=== PATIENT | female | born 1985 | race Caucasian/White ===

== ENCOUNTER 2017-06-19 20:34 | Emergency (ER) | payer OTHER, SELFPAY ==
[2017-06-19 20:44] VITALS: BP 130/79; PULSE 85; RESP 18; TEMP 36.8; O2SAT 99
[2017-06-19 23:40] VITALS: BP 124/65; PULSE 78; RESP 22; O2SAT 99
[2017-06-20 00:12] VITALS: BP 116/55; PULSE 83; RESP 20; O2SAT 99
--- NOTE | 2017-06-20 00:30 | ED.ARRPALP ---
HPI - Arrhythmia/Palpitations General Chief Complaint: Arrhythmia/Palpitations Stated Complaint: HEART PALPITATIONS Time Seen by Provider: 06/20/17 00:17 Source: patient Mode of arrival: ambulatory Limitations: no limitations History of Present Illness HPI narrative: The patient has experienced brief palpitations for the last 2 nights. She is feeling a strange sensation in her chest that lasts only 1 or 2 sec at a time, but the events are happening several times nightly. There is no radiation of pain. She has no associated dyspnea. She has no underlying cardiac or respiratory illness. She is asymptomatic at this time. She does have Crohn's disease and has chronic abdominal pain. She started a ketogenic diet about 4 weeks ago, this is benefit her. However, with this diet she is having to force herself to drink as she does not feel thirsty. She is not taking supplements. She drinks about 1 cup of coffee daily. Alcohol use is less than 1 drink daily. She occasionally smokes, she does smoke marijuana for the Crohn's. She does this to stimulate appetite. There is no family history of early cardiac disease. She is having no fever, chills, cough or dysuria. She is on control. She vomited 2 times yesterday, but this is not abnormal for her due to the Crohn's. Related Data Home Medications Medication Instructions Recorded Confirmed cetirizine 10 mg PO QDAY #0 11/27/16 06/19/17 azathioprine 50 mg PO DAILY 06/19/17 06/19/17 budesonide 3 mg PO DAILY 06/19/17 06/19/17 ergocalciferol (vitamin D2) 50,000 unit PO QWEEK 06/19/17 06/19/17 polyethylene glycol 3350 17 g PO DAILY 06/19/17 06/19/17 ranitidine HCl 150 mg PO DAILY 06/19/17 06/19/17 ustekinumab [Stelara] See Label Instructions .ROUTE 06/19/17 06/19/17 .COMPLEX Previous Rx's Medication Instructions Recorded gabapentin [Neurontin] 300 mg PO SEE INSTRUCTIONS #60 cap 09/22/15 duloxetine [Cymbalta] 30 mg PO QDAY #30 cap 10/31/15 lamotrigine [Lamictal] 100 mg PO QDAY #30 tab 10/31/15 prazosin 1 mg PO SEE INSTRUCTIONS #60 cap 10/31/15 Allergies Allergy/AdvReac Type Severity Reaction Status Date / Time sumatriptan [SUMATRIPTAN] Allergy Severe MUSCLE Verified 06/20/17 01:25 RIGIDITY IN FACE olopatadine [From PATANOL] Allergy Intermediate RED AND Verified 06/20/17 01:25 SWOLLEN EYES Review of Systems Constitutional Denies chills, Denies fever(s), Denies lethargy and Denies weakness ENT Ears, Nose, Mouth, and Throat: Denies change in voice, Denies dysphagia, Denies vertigo, Denies dizziness, Denies neck pain and Denies sore throat Cardiovascular Reports as per HPI, Denies chest pain, Denies diaphoresis, Denies lightheadedness, Reports palpitations, Denies dyspnea and Denies dyspnea on exertion Respiratory Denies cough, Denies dyspnea, Denies dyspnea on exertion and Denies wheezing Gastrointestinal Gastrointestinal: Reports abdominal pain, Denies dysphagia, Denies diarrhea, Reports nausea and Reports vomiting Genitourinary Denies urinary frequency and Denies urinary urgency Musculoskeletal Denies neck pain Integumentary/Breasts Denies pruritus, Denies erythema, Denies rash and Denies wounds Neurologic Denies vertigo, Denies dizziness and Denies weakness Endocrine Reports palpitations Hematologic/Lymphatic Denies easy bleeding Allergic/Immunologic Denies wheezing PFSH Medical History Crohn disease (Acute) No significant past surgical history (Acute) Social History Smoking Status: Current some day smoker alcohol intake: never substance use type: does not use Exam Const General: cooperative and well developed Nutritional Appearance: well nourished Orientation: alert, awake, oriented x3 and not confused [facility] Head: normocephalic and atraumatic Face and sinus: sinuses nontender, face symmetric, no sinus tenderness and No dry mucous membranes Mouth: oral mucosae normal and moist mucous membranes Teeth and gingiva: dentition normal Throat: tonsils normal and uvula midline Neck Neck: normal visual inspection, trachea midline, No lymphadenopathy, No midline deformity, No tender and No JVD Lymphatic: No lymphedema Chest Chest: normal inspection of the chest Resp Effort & Inspection: normal respiratory effort, able to speak in complete sentences, no respiratory distress and no use of accessory muscles Auscultation: clear to auscultation bilaterally, no rales, no rhonchi and no wheezes Cardio Rate: regular rate Rhythm: regular rhythm Heart Sounds: no click, no gallops, no murmurs and no rubs Pulses: normal peripheral pulses GI Inspection: normal to inspection and non-distended Palpation: No guarding, No hepatomegaly, No mass and tender (mild, generalized) Auscultation: normal bowel sounds Back/Spine/Pelvis Back: No CVA tenderness Skin General: no rashes or lesions noted, No jaundice and No petechiae Neuro General: alert, oriented x3, gait normal and no focal motor deficits Cranial Nerves: CN's II-XI intact bilaterally Speech: speech normal Motor: strength 5/5 throughout Sensory Exam: no sensory deficits noted MDM - Arrhythmia/Palpitations Lab Data Attestation: I reviewed the patient's lab results. Result diagrams: 06/20/17 01:15 06/20/17 01:15 Lab Results 06/20/17 06/20/17 Range/Units 01:15 01:15 WBC 6.4 (4.5-11.0) X10^3/uL RBC 4.38 (4.0-5.2) X10^6/uL Hgb 13.3 (12.0-16.0) g/dL Hct 38.9 (36-46) % MCV 88.7 (80-100) fL MCH 30.3 (26-34) PG MCHC 34.1 (30-36) % RDW 13.3 (11.6-14.8) % Plt Count 227 (150-400) X10^3/uL Neut % (Auto) 56.1 (50-75) % Lymph % (Auto) 29.9 (25-40) % [place] % (Auto) 9.5 (3-14) % Eos % (Auto) 4.0 (2-4) % Baso % (Auto) 0.5 (0-2) % Neut # (Auto) 3600 (2987-4006) /uL Sodium 139 (137-145) mmol/L Potassium 3.4 (3.4-5.1) mmol/L Chloride 103.0 (98-107) mmol/L Carbon Dioxide 22.0 (22-32) mmol/L BUN 18.0 H (7-17) mg/dL Creatinine 0.70 (0.52-1.04) mg/dL Estimated GFR > 60.0 (>60) mL/min BUN/Creatinine Ratio 25.7 H (6-22) Glucose 89 (70-100) mg/dL Calcium 8.7 (8.4-10.2) mg/dL Total Bilirubin 0.4 (0.2-1.3) mg/dL AST 25 (14-36) IU/L ALT 14 (9-52) IU/L Alkaline Phosphatase 38 (38-126) U/L Total Protein 6.8 (6.3-8.2) g/dL Albumin 4.0 (3.5-5.0) g/dL Globulin 2.8 (1.7-4.1) g/dL Albumin/Globulin Ratio 1.4 (1.0-2.8) Lipase 177 (23-300) U/L ECG Data Attestation: I personally reviewed and interpreted this ECG as follows: Interpretation: EKG: Normal sinus rhythm rate 76 bpm. As needed oval [address] T wave changes no acute findings. Normal study. Discharge Plan Departure Patient Disposition: Home, Self-Care Clinical Impression: Palpitations, Crohn disease Instructions: DI for Palpitations Activity Restrictions/Additional Instructions: I think it is okay to continue with her diet. Knee disorder good hydration on daily basis. Assure that she would have adequate urine output about every 3-4 hours. Return here as needed. Prescriptions: No Action gabapentin [Neurontin] 300 MG capsule 300 mg PO SEE INSTRUCTIONS Qty: 60 RF: 1 prazosin 1 MG capsule 1 mg PO SEE INSTRUCTIONS Qty: 60 RF: 2 lamotrigine [Lamictal] 100 MG tablet 100 mg PO QDAY Qty: 30 RF: 1 duloxetine [Cymbalta] 30 MG capsule,delayed release(DR/EC) 30 mg PO QDAY Qty: 30 RF: 2 cetirizine 10 MG tablet,chewable 10 mg PO QDAY Qty: 0 RF: 0 ergocalciferol (vitamin D2) 50,000 unit Capsule 50,000 unit PO QWEEK RF: 0 budesonide 3 mg Capsule,Delayed,Extend.Release 3 mg PO DAILY RF: 0 azathioprine 50 mg tablet 50 mg PO DAILY RF: 0 ustekinumab [Stelara] 90 mg/mL syringe See Label Instructions .ROUTE .COMPLEX RF: 0 polyethylene glycol 3350 17 gram/dose powder 17 g PO DAILY RF: 0 ranitidine HCl 150 mg tablet 150 mg PO DAILY RF: 0
[2017-06-20 01:23] LABS: Add Manual Diff / Slide Review NO; Basophils Percent Auto 0.5 % (0-2); Hematocrit 38.9 % (36-46); Hemoglobin 13.3 g/dL (12.0-16.0); Lymphocytes Percent Auto 29.9 % (25-40); Mean Corpuscular HGB Conc 34.1 % (30-36); Mean Corpuscular Hemoglobin 30.3 PG (26-34); Mean Corpuscular Volume 88.7 fL (80-100); Monocytes Percent Auto 9.5 % (3-14); Neutrophils Absolute Auto 3600 /uL (3000-5900); Neutrophils Percent Auto 56.1 % (50-75); Platelet Count 227 X10^3/uL (150-400); Red Blood Cell Count 4.38 X10^6/uL (4.0-5.2); Red Cell Distribution Width 13.3 % (11.6-14.8); White Blood Cell Count 6.4 X10^3/uL (4.5-11.0)
[2017-06-20 01:31] LABS: Alanine Aminotransferase 14 IU/L (9-52); Albumin Globulin Ratio 1.4 (1.0-2.8); Alkaline Phosphatase 38 U/L (38-126); Aspartate Aminotransferase 25 IU/L (14-36); BUN Creatinine Ratio 25.7 (6-22); Bilirubin Total 0.4 mg/dL (0.2-1.3); Calcium 8.7 mg/dL (8.4-10.2); Estimated Glomerular Filt Rate > 60.0 mL/min (>60); Globulin 2.8 g/dL (1.7-4.1); Glucose 89 mg/dL (70-100); HEMOLYSIS 29 (0-50); Lipase 177 U/L (23-300); Potassium 3.4 mmol/L (3.4-5.1); Sodium 139 mmol/L (137-145); Total Protein 6.8 g/dL (6.3-8.2)
[2017-06-20 01:57] VITALS: BP 116/74; PULSE 75; RESP 17
[2017-06-20] MEDS: SODIUM CHLORIDE 0.9% 1,000 ML 1000 ML IV (02:10)
[2017-06-20 02:56] VITALS: BP 101/54; PULSE 75; RESP 19; O2SAT 100
[2017-06-20 03:29] VITALS: BP 99/47; PULSE 69; RESP 15; O2SAT 99
[2017-06-20 03:44] VITALS: BP 102/60; PULSE 68; RESP 16; TEMP 36.6; O2SAT 99
== END 2017-06-20 03:46 | disposition home or self-care (01) ==
PROVIDERS: Emergency Provider Emergency Medicine; PCP Family Medicine
DX: R00.2 Palpitations (principal); K50.90 Crohn's disease, unspecified, without complications
CPT/HCPCS: 80053; 83690; 85025; 93005; 96360; 99283; 99284

== ENCOUNTER → 2020-02-29 08:43 | Outpatient (CLI) | payer OTHER, SELFPAY ==
--- NOTE | 2020-02-29 10:26 | DI.CT.S_ITS ---
PROCEDURE: CT ABDOMEN PELVIS W CON INDICATIONS: Crohn's disease, unspecified, without complication TECHNIQUE: After the administration of intravenous contrast, 5 mm thick sections acquired from the diaphragm to the symphysis. 5 mm coronal and sagittal reformats were acquired. For radiation dose reduction, the following was used: automated exposure control, adjustment of mA and/or kV according to patient size. COMPARISON: None. FINDINGS: Image quality: Excellent. ABDOMEN: Lung bases: Lung bases are clear. Heart size is normal. Solid organs: Liver is normal in size and enhancement. Gallbladder appears normal. Biliary system is non dilated. Pancreas enhances normally. Spleen is normal in size and enhancement. No adrenal nodules. Kidneys demonstrate normal size and enhancement, without hydronephrosis. Peritoneum and bowel: Bowel loops demonstrate normal wall thickness and caliber. No free fluid or air. There is moderate colonic obstipation Nodes and vessels: No retroperitoneal or mesenteric adenopathy by size criteria. Aorta and inferior vena cava are normal in size. Miscellaneous: No ventral hernias. PELVIS: Genitourinary: Bladder wall thickness is normal. Anteverted uterus, centrally positioned IUD. Miscellaneous: No inguinal hernias or adenopathy. At the distal ileum there is abnormal hyperemia of the mucosa, and mild mural thickening of the distal small bowel as it traverses posteriorly and than anteriorly towards the right lower quadrant to intersect the ileocecal valve. Mild fibrofatty proliferation is present, and a nearby normal appendix can be seen. Bones: No suspicious bony lesions. No vertebral body compression fractures. IMPRESSION: Chronic distal small bowel inflammatory change with secondary fibrofatty proliferation in the adjacent mesenteric fat. There is no evidence of abscess formation or stricture. The inflammatory process extends into the ileocecal valve. Colonic obstipation is present, a normal appendix was found. Anteverted uterus with centrally positioned IUD. Dictated by: Mike Patel M.D. on 02/29/2020 at 13:26 Approved by: Mike Patel M.D. on 02/29/2020 at 13:29
== END ==
PROVIDERS: PCP Family Medicine; Referring Provider Physician Assistant; Visit Provider Physician Assistant
DX: K50.90 Crohn's disease, unspecified, without complications (principal); K59.00 Constipation, unspecified; Z97.5 Presence of (intrauterine) contraceptive device
CPT/HCPCS: 74177; Q9967

== ENCOUNTER 2020-04-25 12:56 | Emergency (ER) | payer OTHER, SELFPAY ==
[2020-04-25 13:30] VITALS: BP 117/63; PULSE 81; RESP 14; TEMP 36.9; O2SAT 96; BMI 22.4
--- NOTE | 2020-04-25 14:20 | ED.NEUROSD ---
HPI - Neuro Symptoms/Deficit General Chief Complaint: Neuro Symptoms/Deficit Stated Complaint: New On Set Of Symptoms, Possible MS Time Seen by Provider: 04/25/20 14:19 Source: patient Mode of arrival: Ambulatory Limitations: no limitations History of Present Illness HPI Narrative: 34F nonsmoking in the process of an evaluation and early workup for multiple sclerosis presents with the hope of getting set up with her MRI. She's had various symptoms over the past year including increasing fatigue, insomnia, visual disturbance, and balance issues. She's been connected with neurology at [facility] and working diagnosis is likely MS. She is in the process of getting scheduled for an MRI of the brain and cervical spine with and without contrast but needed to be at either an open MRI or a large-bore because she has PTSD and terrible claustrophobia. She has no new symptoms. She can walk with a largely steady gait, denies lower extremity weakness and has no trouble controlling bowel or bladder. She has had no fever or chills. She denies any chest pain or shortness of breath On Anticoagulants: No Related Data Home Medications Medication Instructions Recorded Confirmed cetirizine 10 mg PO QDAY #0 11/27/16 06/21/17 azathioprine 50 mg PO DAILY 06/19/17 06/21/17 budesonide 3 mg PO DAILY 06/19/17 06/21/17 ergocalciferol (vitamin D2) 50,000 unit PO QWEEK 06/19/17 06/21/17 polyethylene glycol 3350 17 g PO DAILY 06/19/17 06/21/17 ranitidine HCl 150 mg PO DAILY 06/19/17 06/21/17 ustekinumab [Stelara] See Rx Instructions .ROUTE .COMPLEX 06/19/17 06/21/17 Previous Rx's Medication Instructions Recorded duloxetine [Cymbalta] 30 mg PO QDAY #30 cap 10/31/15 prazosin 1 mg PO SEE INSTRUCTIONS #60 cap 10/31/15 tramadol 50 mg PO Q6H PRN #10 tab 06/21/17 lorazepam 0.5 mg PO BEDTIME PRN #10 tab 04/25/20 Allergies Allergy/AdvReac Type Severity Reaction Status Date / Time sumatriptan [SUMATRIPTAN] Allergy Severe MUSCLE Verified 04/25/20 13:32 RIGIDITY IN FACE olopatadine [From PATANOL] Allergy Intermediate RED AND Verified 04/25/20 13:32 SWOLLEN EYES Review of Systems Constitutional Constitutional: Denies chills, Reports fatigue, Denies fever(s), Denies frequent falls, Reports lethargy and Denies weakness Eyes Eyes: Reports change in vision (halos), Denies eye discharge, Denies irritation and Denies loss of vision ENT Ears, Nose, Mouth, and Throat: Denies change in voice, Denies dizziness, Denies neck pain, Denies sore throat and Denies throat swelling Cardiovascular Cardiovascular: Denies chest pain, Denies irregular heart rhythm, Denies lightheadedness, Denies palpitations, Denies dyspnea, Denies dyspnea on exertion and Denies orthopnea Respiratory Respiratory: Denies cough, Denies dyspnea, Denies dyspnea on exertion and Denies wheezing Gastrointestinal Gastrointestinal: Denies abdominal pain, Denies change in bowel habits, Denies diarrhea, Denies nausea and Denies vomiting Musculoskeletal Musculoskeletal: Denies neck pain and Denies numbness Integumentary/Breasts Skin/Breast: Denies pruritus, Denies erythema, Denies rash and Denies wounds Neurologic Neurologic: Denies behavioral changes, Denies confusion, Denies dizziness, Denies frequent falls, Denies loss of vision, Denies numbness and Denies weakness Psychiatric Psychiatric: Denies anxiety, Denies behavioral changes, Denies confusion, Denies depression, Denies homicidal ideation and Denies suicidal ideation Endocrine Endocrine: Reports fatigue, Denies flushing and Denies palpitations Hematologic/Lymphatic Hematologic/Lymphatic: Denies easy bruising On Anticoagulants: No Allergic/Immunologic Allergic/Immunologic: Denies urticaria, Denies throat swelling and Denies wheezing Patient History Medical History Crohn disease Surgical History No significant past surgical history Social History Smoking Status: Former smoker alcohol intake: never substance use type: does not use Smoking Status: Former smoker alcohol intake frequency: holidays/special occasions only Substance Use Type: marijuana Exam Narrative Exam Narrative: GEN: AOx3 and in mild distress, GCS 15 EYES: Pupils are equal, round, and reactive to light and accommodation. Extraoccular muscles are intact bilaterally. There is no subconjunctival hemorrhage or exudate. CHEST: Lungs are clear to auscultation bilaterally and free of wheezes, rales, or rhonchi. Heart rate is regular rhythm, there are no murmurs, clicks, rubs, or gallops. There is no chest wall tenderness. ABD: Abdomen is soft and nontender. There is no guarding or rebound. Bowel sounds are normal in all 4 quadrants. There is no mass or organomegaly. EXT: Full painless ROM of all extremities with no loss of sensation or strength. SKIN: Warm, pink, and dry. No erythema or rash Initial Vital Signs Initial Vital Signs: Vital Signs Temperature 98.5 F 04/25/20 13:30 Pulse Rate 81 04/25/20 13:30 Respiratory Rate 14 04/25/20 13:30 Blood Pressure 117/63 04/25/20 13:30 Pulse Oximetry 96 04/25/20 13:30 Course Consultations Consultation #1: discussed with patient's neurologist who will contact patient today or tomorrow to develop firm plan for further diagnostics Vital Signs Vital signs: Vital Signs - 8 hr 04/25/20 13:30 04/25/20 16:25 Temperature 98.5 F Pulse Rate 81 75 Respiratory Rate 14 16 Blood Pressure 117/63 137/65 Pulse Oximetry 96 97 MDM - Neuro Symptoms/Deficit MDM Narrative Medical decision making narrative: Patient with chronic symptoms and reasurring exam. Discussion with neurology and no need for further diagnostics. Patient very comfortable with plan and has had questions answered to her satisfaction. She understands return precautions. Discharge Plan Departure Patient Disposition: Home Clinical Impression: Multiple sclerosis Instructions: DI for Multiple Sclerosis Activity Restrictions/Additional Instructions: *You have been diagnosed with [ neurologic symptoms consistent with multiple sclerosis] *What to do: *Take medications as directed *Please expect a phone call from your neurologist today or tomorrow with instructions and details about your MRI *Return to ER if you should have any new, worsening or concerning symptoms Prescriptions: New lorazepam 0.5 mg tablet 0.5 mg PO BEDTIME PRN (Reason: sleep) Qty: 10 RF: 0 No Action prazosin 1 MG capsule 1 mg PO SEE INSTRUCTIONS Qty: 60 RF: 2 duloxetine [Cymbalta] 30 MG capsule,delayed release(DR/EC) 30 mg PO QDAY Qty: 30 RF: 2 cetirizine 10 MG tablet,chewable 10 mg PO QDAY Qty: 0 RF: 0 ergocalciferol (vitamin D2) 50,000 unit Capsule 50,000 unit PO QWEEK RF: 0 budesonide 3 mg Capsule,Delayed,Extend.Release 3 mg PO DAILY RF: 0 azathioprine 50 mg tablet 50 mg PO DAILY RF: 0 ustekinumab [Stelara] 90 mg/mL syringe See Rx Instructions .ROUTE .COMPLEX RF: 0 polyethylene glycol 3350 17 gram/dose powder 17 g PO DAILY RF: 0 ranitidine HCl 150 mg tablet 150 mg PO DAILY RF: 0 tramadol 50 mg tablet 50 mg PO Q6H PRN (Reason: pain) Qty: 10 RF: 0 Referrals: Gerald Barnard MD [Primary Care Provider] -
--- NOTE | 2020-04-25 14:26 | PC.NURSE ---
Pt states she is currently being worked up for MS by a neurologist at [facility]. She is to get an open MRI to confirm MS dx but is having a hard time getting that scheduled and she states that she is here to expedite that process. Since her last appt she has been having trouble sleeping and is having an increase in facial twitching
[2020-04-25 16:25] VITALS: BP 137/65; PULSE 75; RESP 16; O2SAT 97
== END 2020-04-25 16:26 | disposition home or self-care (01) ==
PROVIDERS: Emergency Provider Emergency Medicine; PCP Family Medicine
DX: G35 Multiple sclerosis (principal)
CPT/HCPCS: 99281

== ENCOUNTER 2020-09-11 17:05 | Emergency (ER) | payer OTHER, SELFPAY ==
[2020-09-11 17:14] VITALS: BP 125/64; PULSE 84; RESP 12; TEMP 36.1; O2SAT 100; BMI 22.6
--- NOTE | 2020-09-11 17:17 | DI.RAD.S_ITS ---
PROCEDURE: XR CHEST 1V INDICATIONS: chest pain TECHNIQUE: One view of the chest was acquired. COMPARISON: None. FINDINGS: Surgical changes and devices: None. Lungs and pleura: Lungs are clear. No pleural effusions or pneumothorax. Mediastinum: Mediastinal contours appear normal. Heart size is normal. Bones and chest wall: No suspicious bony lesions. Overlying soft tissues appear unremarkable. IMPRESSION: No acute cardiopulmonary abnormality. Dictated by: Dalton Prieto M.D. on 09/11/2020 at 17:41 Approved by: Dalton Prieto M.D. on 09/11/2020 at 17:41
[2020-09-11 17:36] LABS: Add Manual Diff / Slide Review NO; Basophils Absolute Auto 0 /uL (0-100); Basophils Percent Auto 0.5 % (0-2); Eosinophils Absolute Auto 100 /uL (0-450); Eosinophils Percent Auto 2.1 % (2-4); Hematocrit 39.4 % (36-46); Hemoglobin 13.6 g/dL (12.0-16.0); Lymphocytes Absolute Auto 1300 /uL (1100-4500); Lymphocytes Percent Auto 18.5 % (25-40); Mean Corpuscular HGB Conc 34.4 % (30-36); Mean Corpuscular Hemoglobin 31.1 PG (26-34); Mean Corpuscular Volume 90.5 fL (80-100); Monocytes Absolute Auto 500 /uL (0-900); Monocytes Percent Auto 6.6 % (3-14); Neutrophils Absolute Auto 5100 /uL (1500-7000); Neutrophils Percent Auto 72.3 % (50-75); Platelet Count 273 X10^3/uL (150-400); Red Blood Cell Count 4.35 X10^6/uL (4.0-5.2); Red Cell Distribution Width 12.6 % (11.6-14.8); White Blood Cell Count 7.1 X10^3/uL (4.5-11.0)
[2020-09-11] MEDS: ONDANSETRON 4 MG/2 ML INJ IV (17:42)
[2020-09-11 17:52] LABS: Alanine Aminotransferase 14 IU/L (<35); Albumin 4.1 g/dL (3.5-5.0); Albumin Globulin Ratio 1.4 (1.0-2.8); Alkaline Phosphatase 44 U/L (38-126); Aspartate Aminotransferase 24 IU/L (14-36); BUN Creatinine Ratio 21.3 (6-22); Bilirubin Total 0.2 mg/dL (0.2-1.3); Blood Urea Nitrogen 16 mg/dL (7-17); Calcium 9.1 mg/dL (8.4-10.2); Carbon Dioxide 29 mmol/L (22-32); Chloride 104 mmol/L (98-107); Creatine Kinase 52 U/L (30-135); Estimated Glomerular Filt Rate > 60.0 mL/min (>60); Glucose 73 mg/dL (70-100); HEMOLYSIS < 15 (0-50); Lipase 162 U/L (23-300); Potassium 3.9 mmol/L (3.4-5.1); Sodium 138 mmol/L (137-145); Total Protein 7.1 g/dL (6.3-8.2)
[2020-09-11 18:00] VITALS: BP 119/68
[2020-09-11 18:01] VITALS: PULSE 77; RESP 21; O2SAT 100
[2020-09-11 18:04] LABS: Troponin I < 0.012 ng/mL (0.01-0.034)
[2020-09-11 18:30] VITALS: BP 120/68; PULSE 79; RESP 31; O2SAT 100
--- NOTE | 2020-09-11 18:41 | ED.CHESTPAIN ---
HPI - Chest Pain General Chief Complaint: Chest Pain Stated Complaint: CHEST PAIN VOMITING Time Seen by Provider: 09/11/20 17:37 Mode of arrival: Wheelchair History of Present Illness HPI narrative: Patient is a 35-year-old female who arrives to the emergency department for evaluation of multiple symptoms to include chest pain, vomiting, lightheadedness when she stands, palpitations, vertigo she has had these symptoms in the past and is currently awaiting a consult to go through for her to see Cardiology further evaluation of POTS. Related Data Home Medications Medication Instructions Recorded Confirmed cetirizine 10 mg chewable tablet 10 mg PO QDAY #0 11/27/16 06/21/17 azathioprine 50 mg tablet 50 mg PO DAILY 06/19/17 06/21/17 budesonide 3 mg 3 mg PO DAILY 06/19/17 06/21/17 capsule,delayed,extended release ergocalciferol (vitamin D2) 1,250 50,000 unit PO QWEEK 06/19/17 06/21/17 mcg (50,000 unit) capsule polyethylene glycol 3350 17 17 g PO DAILY 06/19/17 06/21/17 gram/dose oral powder ranitidine HCl 150 mg tablet 150 mg PO DAILY 06/19/17 06/21/17 ustekinumab 90 mg/mL subcutaneous See Rx Instructions .ROUTE .COMPLEX 06/19/17 06/21/17 syringe Previous Rx's Medication Instructions Recorded duloxetine 30 mg capsule,delayed 30 mg PO QDAY #30 cap 10/31/15 release (Cymbalta) prazosin 1 mg capsule 1 mg PO SEE INSTRUCTIONS #60 cap 10/31/15 tramadol 50 mg tablet 50 mg PO Q6H PRN #10 tab 06/21/17 lorazepam 0.5 mg tablet 0.5 mg PO BEDTIME PRN #10 tab 04/25/20 Allergies Allergy/AdvReac Type Severity Reaction Status Date / Time sumatriptan [SUMATRIPTAN] Allergy Severe MUSCLE Verified 09/11/20 18:21 RIGIDITY IN FACE olopatadine [From PATANOL] Allergy Intermediate RED AND Verified 09/11/20 18:21 SWOLLEN EYES Review of Systems Constitutional Constitutional: Denies fever(s) Eyes Eyes: Reports system reviewed and no additional complaints, except as documented ENT Ears, Nose, Mouth, and Throat: Reports system reviewed and no additional complaints, except as documented Cardiovascular Cardiovascular: Reports as per HPI Respiratory Respiratory: Reports system reviewed and no additional complaints, except as documented Gastrointestinal Gastrointestinal: Reports as per HPI Musculoskeletal Musculoskeletal: Reports system reviewed and no additional complaints, except as documented Integumentary/Breasts Skin/Breast: Reports system reviewed and no additional complaints, except as documented Neurologic Neurologic: Reports as per HPI Hematologic/Lymphatic On Anticoagulants: No Patient History Medical History Crohn disease Surgical History No significant past surgical history Social History Smoking Status: Former smoker alcohol intake: never substance use type: does not use Smoking Status: Former smoker alcohol intake frequency: holidays/special occasions only Substance Use Type: marijuana Exam Initial Vital Signs Initial Vital Signs: Vital Signs Temperature 97.0 F L 09/11/20 17:14 Pulse Rate 84 09/11/20 17:14 Respiratory Rate 12 09/11/20 17:14 Blood Pressure 125/64 09/11/20 17:14 Pulse Oximetry 100 09/11/20 17:14 Const General: cooperative, comfortable and well developed HENMT Head: normal to inspection and normocephalic Resp Effort & Inspection: normal respiratory effort Auscultation: clear to auscultation bilaterally Cardio Rate: regular rate Rhythm: regular rhythm GI Inspection: normal to inspection Skin General: no rashes or lesions noted Neuro General: patient alert, patient awake, patient oriented x3 and moves all extremities Extrem General: normal to inspection and capillary refill normal Psych Appearance: grossly normal and well kempt Course Orders Ordered: ED Orders 09/11/20 18:23 COVID19 -Nasal swab/Pre-Proc Stat Discontinued Medications Ondansetron HCl (Ondansetron 4 Mg/2 Ml Inj) 4 mg IV NOW ONE Stop: 09/11/20 17:38 Last Admin: 09/11/20 17:42 Dose: 4 mg Documented by: DESIRAE Vital Signs Vital signs: Vital Signs - 8 hr 09/11/20 19:00 Pulse Rate 78 Respiratory Rate 22 Blood Pressure 118/66 Pulse Oximetry 100 MDM - Chest Pain Medical Records Data Attestation: I reviewed the patient's medical records. Lab Data Attestation: I reviewed the patient's lab results. Result diagrams: 09/11/20 17:28 09/11/20 17:28 Labs: Lab Results 09/11/20 09/11/20 09/11/20 Range/Units 17:28 17:28 18:23 WBC 7.1 (4.5-11.0) X10^3/uL RBC 4.35 (4.0-5.2) X10^6/uL Hgb 13.6 (12.0-16.0) g/dL Hct 39.4 (36-46) % MCV 90.5 (80-100) fL MCH 31.1 (26-34) PG MCHC 34.4 (30-36) % RDW 12.6 (11.6-14.8) % Plt Count 273 (150-400) X10^3/uL Neut % (Auto) 72.3 (50-75) % Lymph % (Auto) 18.5 L (25-40) % [place] % (Auto) 6.6 (3-14) % Eos % (Auto) 2.1 (2-4) % Baso % (Auto) 0.5 (0-2) % Neut # (Auto) 5100 (2114-8967) /uL Lymph # (Auto) 1300 (2549-7422) /uL [place] # (Auto) 500 (0-900) /uL Eos # (Auto) 100 (0-450) /uL Baso # (Auto) 0 (0-100) /uL Sodium 138 (137-145) mmol/L Potassium 3.9 (3.4-5.1) mmol/L Chloride 104 (98-107) mmol/L Carbon Dioxide 29 (22-32) mmol/L BUN 16 (7-17) mg/dL Creatinine 0.75 (0.52-1.04) mg/dL Estimated GFR > 60.0 (>60) mL/min BUN/Creatinine Ratio 21.3 (6-22) Glucose 73 (70-100) mg/dL Calcium 9.1 (8.4-10.2) mg/dL Total Bilirubin 0.2 (0.2-1.3) mg/dL AST 24 (14-36) IU/L ALT 14 (<35) IU/L Alkaline Phosphatase 44 (38-126) U/L Total Creatine Kinase 52 (30-135) U/L CK-MB (CK-2) TNP CK-MB (CK-2) Rel Index TNP Troponin I < 0.012 (0.01-0.034) ng/mL Total Protein 7.1 (6.3-8.2) g/dL Albumin 4.1 (3.5-5.0) g/dL Globulin 3.0 (1.7-4.1) g/dL Albumin/Globulin Ratio 1.4 (1.0-2.8) Lipase 162 (23-300) U/L SARS-CoV-2 (PCR) Negative (Negative) Imaging Data Chest x-ray: Radiologist's Impression: [address] [id number] ReportSigned Patient: Kathy Meyers CMR#: [id number]: 1985Acct:[id number]/Sex: 35 / FDate of Service: 09/11/20Loc: EDAccession Number: [id number] Procedure: XR chest 1V Ordering Provider: Mark Mills D.O. PROCEDURE: XR CHEST 1V INDICATIONS: chest pain TECHNIQUE: One view of the chest was acquired. COMPARISON: None. FINDINGS: Surgical changes and devices: None. Lungs and pleura: Lungs are clear. No pleural effusions or pneumothorax. Mediastinum: Mediastinal contours appear normal. Heart size is normal. Bones and chest wall: No suspicious bony lesions. Overlying soft tissues appear unremarkable. IMPRESSION: No acute cardiopulmonary abnormality. Dictated by: Dalton Prieto M.D. on 09/11/2020 at 17:41 Approved by: Dalton Prieto M.D. on 09/11/2020 at 17:41 ECG Data Attestation: I personally reviewed and interpreted this ECG as follows: Interpretation: Sinus rhythm Ventricular rate 83 Normal axis Normal QRS Normal QTC No ST T wave changes MDM Narrative Medical decision making narrative: Final slight are unremarkable, EKG chest x-ray and labs unremarkable. Physical exam is unremarkable. Has had no ectopy since being on the monitor here in the ER. We will hold on further workup for now. Will have her continue with the follow-up with cardiology for further evaluation of her symptoms. Low suspicion for CVA. Low suspicion for ACS. We did discuss palpitations and reasons to return to the emergency department. She expressed understanding and agreement. Discharge Plan Departure Patient Disposition: Home Clinical Impression: Palpitations Instructions: DI for Arrhythmias Activity Restrictions/Additional Instructions: I recommend that you keep all of your scheduled medical appointments. Be sure to increase your fluid intake. Keep taking all of your medications as directed. Return to the emergency department for any new or worsening symptoms Prescriptions: No Action prazosin 1 MG capsule 1 mg PO SEE INSTRUCTIONS Qty: 60 RF: 2 duloxetine [Cymbalta] 30 MG capsule,delayed release(DR/EC) 30 mg PO QDAY Qty: 30 RF: 2 cetirizine 10 MG tablet,chewable 10 mg PO QDAY Qty: 0 RF: 0 ergocalciferol (vitamin D2) 50,000 unit Capsule 50,000 unit PO QWEEK RF: 0 budesonide 3 mg Capsule,Delayed,Extend.Release 3 mg PO DAILY RF: 0 azathioprine 50 mg tablet 50 mg PO DAILY RF: 0 ustekinumab [Stelara] 90 mg/mL syringe See Rx Instructions .ROUTE .COMPLEX RF: 0 polyethylene glycol 3350 17 gram/dose powder 17 g PO DAILY RF: 0 ranitidine HCl 150 mg tablet 150 mg PO DAILY RF: 0 tramadol 50 mg tablet 50 mg PO Q6H PRN (Reason: pain) Qty: 10 RF: 0 lorazepam 0.5 mg tablet 0.5 mg PO BEDTIME PRN (Reason: sleep) Qty: 10 RF: 0 Referrals: Gerald Barnard MD [Primary Care Provider] -
[2020-09-11 18:48] LABS: COVID19 -Nasal RAPID Negative (Negative)
[2020-09-11 19:00] VITALS: BP 118/66; PULSE 78; RESP 22; O2SAT 100
== END 2020-09-11 19:08 | disposition home or self-care (01) ==
PROVIDERS: Emergency Medicine; Emergency Provider Emergency Medicine; PCP Family Medicine
DX: R00.2 Palpitations (principal); R07.9 Chest pain, unspecified; Z20.822 Contact with and (suspected) exposure to COVID-19
CPT/HCPCS: 36415; 71045; 80053; 82550; 83690; 84484; 85025; 87635; 93005; 96374; 99284; C9803; J2405

== ENCOUNTER 2021-08-06 12:11 | Emergency (ER) | payer OTHER, SELFPAY ==
[2021-08-06 12:20] VITALS: BP 132/84; PULSE 86; RESP 16; TEMP 37.1; O2SAT 100; BMI 25.0
--- NOTE | 2021-08-06 14:39 | ED_ITS ---
HPI - Psych General Chief Complaint: Psychiatric Symptoms Stated Complaint: Really Sick/Not Sleeping/SI Time Seen by Provider: 08/06/21 12:53 History of Present Illness HPI Narrative: 36-year-old woman presents with multiple chronic pain issues, significant insomnia with significant sleep deprivation, she has seen specialists who have not been helpful and she feels that her concerns have not been heard. She has seen a neurologist at [facility] and MRI was ordered to rule out MS however she was unable to tolerate this can due to severe anxiety with PTS type concerns from prior exams. At this point she is feeling defeated, depressed. She is having significant suicidal ideation but does not have a plan. She is trying to get on disability. Does not appear that she has been seen by a pain specialist and she is not having her chronic pain adequately controlled at this time. Her is her primary support system and has been wonderful but she is looking for guidance and help in negotiating the medical system and establishing care that may offer some type of relief for her suffering. Review of neurology notes indicates that she had been complaining of cognitive decline, skin paresthesia call, balance difficulties, hyper reflexia had been noted, urinary incontinence and concern for multiple sclerosis was noted. Related Data Home Medications Medication Instructions Recorded Confirmed cetirizine 10 mg chewable tablet 10 mg PO QDAY ##0 11/27/16 06/21/17 azathioprine 50 mg tablet 50 mg PO DAILY 06/19/17 06/21/17 budesonide 3 mg 3 mg PO DAILY 06/19/17 06/21/17 capsule,delayed,extended release ergocalciferol (vitamin D2) 1,250 50,000 unit PO QWEEK 06/19/17 06/21/17 mcg (50,000 unit) capsule polyethylene glycol 3350 17 17 g PO DAILY 06/19/17 06/21/17 gram/dose oral powder ranitidine HCl 150 mg tablet 150 mg PO DAILY 06/19/17 06/21/17 ustekinumab 90 mg/mL subcutaneous See Rx Instructions .Route .COMPLEX 06/19/17 06/21/17 syringe Previous Rx's Medication Instructions Recorded duloxetine 30 mg capsule,delayed 30 mg PO QDAY #30 caps 10/31/15 release (Cymbalta) prazosin 1 mg capsule 1 mg PO SEE INSTRUCTIONS #60 caps 10/31/15 tramadol 50 mg tablet 50 mg PO Q6H PRN pain #10 tabs 06/21/17 lorazepam 0.5 mg tablet 0.5 mg PO BEDTIME PRN sleep #10 04/25/20 tabs prazosin 1 mg capsule 1 mg PO BEDTIME #30 caps 08/06/21 quetiapine 50 mg tablet (Seroquel) 50 mg PO BEDTIME #60 tabs 08/06/21 Allergies Allergy/AdvReac Type Severity Reaction Status Date / Time sumatriptan [SUMATRIPTAN] Allergy Severe MUSCLE Verified 09/11/20 18:21 RIGIDITY IN FACE olopatadine [From PATANOL] Allergy Intermediate RED AND Verified 09/11/20 18:21 SWOLLEN EYES Review of Systems Review of Systems Narrative: Remarkably positive: Insomnia, headaches, cognitive dysfunction, anxiety, intermittent chest pain, intermittent abdominal pain, intermittent diarrhea and constipation, urinary incontinence without dysuria, migrating temporary paresthesias of the skin, no skin changes or rashes. Intermittent episodes of dizziness and gait dysfunction, feelings of hopelessness and helplessness Remainder of complete review of systems is otherwise unremarkable except for that included in the HPI. Patient History Medical History (Updated 08/07/21 @ 08:10 by Jnena Gonzalez MD) Anxiety and depression Crohn disease Fibromyalgia Insomnia Panic attacks Surgical History No significant past surgical history Social History Smoking Status: Former smoker alcohol intake: never substance use type: does not use Smoking Status: Former smoker alcohol intake frequency: holidays/special occasions only Substance Use Type: marijuana Exam Initial Vital Signs Initial Vital Signs: Vital Signs Temperature 98.8 F 08/06/21 12:20 Pulse Rate 86 08/06/21 12:20 Respiratory Rate 16 08/06/21 12:20 Blood Pressure 132/84 08/06/21 12:20 Pulse Oximetry 100 08/06/21 12:20 Oxygen Delivery Method 08/06/21 12:20 General: Chronically ill-appearing, obviously fatigued, deep circles under her eyes, clear discussion, focused and able to participate fully in exam HEENT: Moist mucous membranes, normal sclera with reactive pupils, Neck: supple Respiratory: Lungs are clear to auscultation, no wheezing no rales no rhonchi. Full and symmetrical air movement Cardiac: Regular rate and rhythm no murmurs no bruits Abdomen: Soft, nontender, good bowel tones, no flank pain Skin: Warm and dry, no rashes Neurologic: Grossly neurologically intact with no obvious asymmetries or abnormalities. Today I a.m. not appreciating hyper reflexia Extremities: No trauma, well perfused Psych: Cooperative, despondent, fluent speech patterns Course Orders Ordered: Discontinued Medications Lorazepam (Lorazepam 2 Mg/Ml Inj) 1 mg IV NOW ONE Stop: 08/06/21 16:08 Last Admin: 08/06/21 16:33 Dose: 1 mg Documented By: RL Lorazepam (Lorazepam 0.5 Mg Tablet) 1 mg PO NOW ONE Stop: 08/06/21 16:08 Last Admin: 08/06/21 16:17 Dose: 1 mg Documented By: RL Vital Signs Vital signs: Vital Signs - 8 hr 08/06/21 12:20 Temperature 98.8 F Pulse Rate 86 Respiratory Rate 16 Blood Pressure 132/84 Pulse Oximetry 100 Oxygen Delivery Method Room Air MDM - Psych Lab Data Result diagrams: 08/06/21 16:23 08/06/21 16:23 Labs: Lab Results 08/06/21 08/06/21 Range/Units 16:23 16:23 WBC 5.4 (4.5-11.0) X10^3/uL RBC 4.35 (4.0-5.2) X10^6/uL Hgb 12.9 (12.0-16.0) g/dL Hct 38.4 (36-46) % MCV 88.3 (80-100) fL MCH 29.7 (26-34) PG MCHC 33.7 (30-36) % RDW 12.7 (11.6-14.8) % Plt Count 271 (150-400) X10^3/uL Neut % (Auto) 60.6 (50-75) % Lymph % (Auto) 20.9 L (25-40) % [place] % (Auto) 8.5 (3-14) % Eos % (Auto) 9.1 H (2-4) % Baso % (Auto) 0.9 (0-2) % Neut # (Auto) 3300 (7541-3904) /uL Lymph # (Auto) 1100 (5101-8853) /uL [place] # (Auto) 500 (0-900) /uL Eos # (Auto) 500 H (0-450) /uL Baso # (Auto) 0 (0-100) /uL Sodium 139 (137-145) mmol/L Potassium 3.6 (3.4-5.1) mmol/L Chloride 105 (98-107) mmol/L Carbon Dioxide 27 (22-32) mmol/L BUN 12 (7-17) mg/dL Creatinine 0.76 (0.52-1.04) mg/dL Estimated GFR > 60 (>60) mL/min BUN/Creatinine Ratio 15.8 (6-22) Glucose 89 (70-100) mg/dL Calcium 8.5 (8.4-10.2) mg/dL Total Bilirubin 0.7 (0.2-1.3) mg/dL AST 22 (14-36) IU/L ALT 11 (<35) IU/L Alkaline Phosphatase 54 (38-126) U/L Total Protein 7.3 (6.3-8.2) g/dL Albumin 4.2 (3.5-5.0) g/dL Globulin 3.1 (1.7-4.1) g/dL Albumin/Globulin Ratio 1.4 (1.0-2.8) Point of Care Testing Test Results Negative Urine Dip Bedside Urine Glucose Negative Bedside Urine Bilirubin - Negative Bedside Urine Ketone - Negative Urine Specific [place] 1.020 Bedside Urine Occult Blood +/- Bedside Urine pH 6.0 Bedside Urine Protein +/- 15 Bedside Urine Urobilinogen - Negative Bedside Urine Nitrite - Negative Bedside Urine Leukocytes - Negative Esterase Imaging Data MRI Brain: Radiologist's Impression: FINDINGS:? Image quality:? This examination is limited by involuntary motion artifact.? ? CSF spaces:? Ventricles are normal in size and shape.? Basal cisterns are patent.? No extra-axial fluid collections.? ? Brain:? In this patient with this given history, scrutiny is given to abnormal T2 hyperintense white matter lesions.? None can be seen. ? No intracranial bleeds or mass effects.? Saucedo-white matter interface appears intact.? No abnormal intracranial enhancement.? Diffusion weighted images show no acute ischemic insults.? Brainstem appears normal.? Normal intravascular flow voids are present.? ? Skull and face:? Calvarial marrow signal is normal.? Orbits appear normal.? ? Sinuses:? There is a prominent mucous retention cyst seen involving the left maxillary sinus.? Mild to moderate mucosal thickening is seen within the paranasal sinuses. No abnormal fluid is seen within the mastoid air cells. ? ? ? IMPRESSION:? Normal brain MRI, without findings of T2 hyperintense lesions to suggest multiple sclerosis plaques. ? No masses or abnormal enhancement can be seen. ? ? ? Incidental note is made of: Paranasal sinus disease, including a left maxillary sinus mucous retention cyst? ? ? Dictated by: Wiley Brink M.D. on 08/06/2021 at 16:40? ?? MR Cspine: Radiologist's Impression: FINDINGS:? Image quality:? This examination is limited by involuntary motion artifact.? ? Alignment and curvature:? There is normal bony alignment.? ? Marrow:? Marrow demonstrates normal overall signal.? ? Spinal cord:? Visualized spinal cord is normal in size, without white matter lesions.? No suspicious intramedullary enhancement.? No cerebellar tonsillar herniation.? ? Paraspinous soft tissues:? No paravertebral masses or suspicious enhancement.? ? C2-C3:? Normal appearance.? ? C3-C4:? [id number] loss of disc height and disc signal can be seen.? At least moderate disc osteophyte complex is seen. Moderate facet joint hypertrophy is seen.? At least moderate bilateral neural foraminal narrowing can be seen. Mild central canal narrowing is seen.? ? C4-C5:? Mild loss of disc height is seen. Loss of disc signal is seen.? Moderate disc osteophyte complex is seen, which is eccentric to the right. Moderate facet pedro pablo nt hypertrophy is seen.? There is moderate to severe right-sided and at least moderate left-sided neural foraminal narrowing.? Mild to moderate central canal narrowing is seen. ? C5-C6:? Mild loss of disc height is seen. Loss of disc signal is seen.? A mild degree of generalized disc osteophyte complex is seen.? Moderate facet joint hypertrophy is seen.? There is at least moderate bilateral neural foraminal narrowing seen. Minimal central canal narrowing is seen.? ? C6-C7:? Normal appearance.? ? C7-T1:? Normal appearance.? IMPRESSION:? ? No abnormal white matter lesions are seen to suggest multiple sclerosis involvement within the cervical cord. ? No abnormal enhancement is seen. ? Multiple levels of premature cervical spine degenerative change can be seen.? ? ? Dictated by: Wiley Brink M.D. on 08/06/2021 at 16:44? ?? MDM Narrative Medical decision making narrative: 36-year-old woman with multiple medical problems and is struggling with accessing care in finding help. She is feeling that she is not being heard by her medical providers. I believe her significant anxiety and PTSD along with nightmares are contributing to dramatic sleep deprivation which is exacerbating her depression, anxiety and fibromyalgia. She is concerned that she has multiple sclerosis is and has not been able to have MRI is to get to a definitive answer. She has not slept adequately for months and is having more and more issues with sleep deprivation and coping skills due to this. She has not been any type of [facility] diet would certainly consider this. Today with appropriate sedation we were able to facilitate brain and cervical spine MRIs as requested by Neurology. She does not have multiple sclerosis. Talked about additional help for sleep as well as nightmares. It looks like in the past she has been on prazosin but is not currently on that. At time of discharge she was very sleepy after the sedation so as not able to follow-up on the prazosin but did give her prescription. Regarding sleep have added Seroquel to see if this might make a difference. She clearly needs follow-up with her primary care physician, would likely very much benefit from psychiatry consulta tion to help with medical management and may also benefit from comprehensive pain management. I believe until we have fully addressed and helped with the significant sleep disturbance that she is going to have difficulty returning to functional baseline. She was seen by social work today with additional perinatal social worker recommended. She has excellent support from her . Discharge Plan Departure Patient Disposition: Home Clinical Impression: Sleep disturbance, Depression, Anxiety, Chronic pain, Post-traumatic stress disorder Activity Restrictions/Additional Instructions: Thank you for coming in today. I am so sorry that you have been suffering with so much. We covered a lot today and I have a number of suggestions 1. The MRI of your brain and your cervical spine were normal. You do not have multiple sclerosis. 2. For sleep I am going to suggest that we add quetiapine/Seroquel to your medications. Going to give you 50 mg tablets. Begin at 50 mg and if this feels too sedating you can cut them in half. That feels that it is not enough you can go up to 100 mg. You will need to review this with your primary care physician. Getting adequate sleep is going to be the 1. Most important thing for you to feel normal, think normally and better cope with your chronic pain issues. 3. For your nightmares, it looks like you are on prazosin 2 mg at bedtime at what point in the past. I am going to suggest that you restart this at 1 mg. I have written a prescription for this. If you had other side effects with this or reason to not continue, do not fill this prescription Prescriptions for quetiapine and prazosin were both electronically transmitted to [facility] in [place] 4. You may benefit from seeing a chronic pain specialist. Please discuss this with your primary care doctor You were sleeping nicely as you were discharged and we did not get a chance to fully discuss all of these recommendations. I am working tomorrow during the day if you would like to call and review recommendations above. The phone number is [phone]. Ask for Dr. Gonzalez Prescriptions: New quetiapine [Seroquel] 50 mg tablet 50 mg PO BEDTIME Qty: 60 0RF prazosin 1 mg capsule 1 mg PO BEDTIME Qty: 30 0RF No Action prazosin 1 MG capsule 1 mg PO SEE INSTRUCTIONS Qty: 60 2RF Label Comments: Taking 2mg duloxetine [Cymbalta] 30 MG capsule,delayed release(DR/EC) 30 mg PO QDAY Qty: 30 2RF cetirizine 10 MG tablet,chewable 10 mg PO QDAY Qty: 0 ergocalciferol (vitamin D2) 50,000 unit Capsule 50,000 unit PO QWEEK budesonide 3 mg Capsule,Delayed,Extend.Release 3 mg PO DAILY azathioprine 50 mg tablet 50 mg PO DAILY ustekinumab [Stelara] 90 mg/mL syringe See Rx Instructions .ROUTE .COMPLEX Rx Instructions: 90 mg subcutaneously every 8 weeks polyethylene glycol 3350 17 gram/dose powder 17 g PO DAILY ranitidine HCl 150 mg tablet 150 mg PO DAILY tramadol 50 mg tablet 50 mg PO Q6H PRN (Reason: pain) Qty: 10 0RF Rx Instructions: take with tylenol lorazepam 0.5 mg tablet 0.5 mg PO BEDTIME PRN (Reason: sleep) Qty: 10 0RF Referrals: Gerald Barnard MD [Primary Care Provider] - Stand Alone Forms: Work Release Note Visit Report Forms: Patient Portal/API
--- NOTE | 2021-08-06 16:05 | DI.MRI.S_ITS ---
PROCEDURE: MR CERVICAL SPINE WO/W CON INDICATIONS: MS. Per neuro. significant anxiety, will medicate TECHNIQUE: Noncontrast sagittal T1 spin echo and T2 fast spin echo, sagittal STIR, sagittal PD fast spin echo, foraminal oblique sagittal T2 fast spin echo, axial gradient echo or T2 fast spin echo through the cervical spine. After the administration of contrast, sagittal and axial T1 spin echo with fat saturation through the cervical spine. COMPARISON: [facility], MR, MR HEAD/BRAIN WO/W CON, 08/06/2021, 16:38. FINDINGS: Image quality: This examination is limited by involuntary motion artifact. Alignment and curvature: There is normal bony alignment. Marrow: Marrow demonstrates normal overall signal. Spinal cord: Visualized spinal cord is normal in size, without white matter lesions. No suspicious intramedullary enhancement. No cerebellar tonsillar herniation. Paraspinous soft tissues: No paravertebral masses or suspicious enhancement. C2-C3: Normal appearance. C3-C4: Wocw-ko-utxlqrup loss of disc height and disc signal can be seen. At least moderate disc osteophyte complex is seen. Moderate facet joint hypertrophy is seen. At least moderate bilateral neural foraminal narrowing can be seen. Mild central canal narrowing is seen. C4-C5: Mild loss of disc height is seen. Loss of disc signal is seen. Moderate disc osteophyte complex is seen, which is eccentric to the right. Moderate facet joint hypertrophy is seen. There is moderate to severe right-sided and at least moderate left-sided neural foraminal narrowing. Mild to moderate central canal narrowing is seen. C5-C6: Mild loss of disc height is seen. Loss of disc signal is seen. A mild degree of generalized disc osteophyte complex is seen. Moderate facet joint hypertrophy is seen. There is at least moderate bilateral neural foraminal narrowing seen. Minimal central canal narrowing is seen. C6-C7: Normal appearance. C7-T1: Normal appearance. IMPRESSION: No abnormal white matter lesions are seen to suggest multiple sclerosis involvement within the cervical cord. No abnormal enhancement is seen. Multiple levels of premature cervical spine degenerative change can be seen. Dictated by: Wiley Brink M.D. on 08/06/2021 at 16:44 Approved by: Wiley Brink M.D. on 08/06/2021 at 16:46
--- NOTE | 2021-08-06 16:05 | DI.MRI.S_ITS ---
PROCEDURE: MR HEAD/BRAIN WO/W CON INDICATIONS: possible MS, severe anxiety, will have ativain prior, TECHNIQUE: Noncontrast sagittal and axial FLAIR, axial and coronal T2 fast spin echo, axial VIBE, axial gradient echo, axial diffusion and ADC through the brain. After the administration of contrast, axial and coronal and sagittal VIBE with fat saturation through the brain. COMPARISON: [facility], MR, MR CERVICAL SPINE WO/W CON, 08/06/2021, 16:54. FINDINGS: Image quality: This examination is limited by involuntary motion artifact. CSF spaces: Ventricles are normal in size and shape. Basal cisterns are patent. No extra-axial fluid collections. Brain: In this patient with this given history, scrutiny is given to abnormal T2 hyperintense white matter lesions. None can be seen. No intracranial bleeds or mass effects. Saucedo-white matter interface appears intact. No abnormal intracranial enhancement. Diffusion weighted images show no acute ischemic insults. Brainstem appears normal. Normal intravascular flow voids are present. Skull and face: Calvarial marrow signal is normal. Orbits appear normal. Sinuses: There is a prominent mucous retention cyst seen involving the left maxillary sinus. Mild to moderate mucosal thickening is seen within the paranasal sinuses. No abnormal fluid is seen within the mastoid air cells. IMPRESSION: Normal brain MRI, without findings of T2 hyperintense lesions to suggest multiple sclerosis plaques. No masses or abnormal enhancement can be seen. Incidental note is made of: Paranasal sinus disease, including a left maxillary sinus mucous retention cyst Dictated by: Wiley Brink M.D. on 08/06/2021 at 16:40 Approved by: Wiley Brink M.D. on 08/06/2021 at 16:41
[2021-08-06] MEDS: LORazepam 0.5 MG TABLET 1 MG PO (16:17)
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
[2021-08-06] MEDS: LORazepam 2 MG/ML INJ 1 MG IV (16:33)
[2021-08-06 16:34] LABS: Add Manual Diff / Slide Review NO; Basophils Absolute Auto 0 /uL (0-100); Basophils Percent Auto 0.9 % (0-2); Eosinophils Absolute Auto 500 /uL (0-450); Eosinophils Percent Auto 9.1 % (2-4); Hematocrit 38.4 % (36-46); Hemoglobin 12.9 g/dL (12.0-16.0); Lymphocytes Absolute Auto 1100 /uL (1100-4500); Lymphocytes Percent Auto 20.9 % (25-40); Mean Corpuscular HGB Conc 33.7 % (30-36); Mean Corpuscular Hemoglobin 29.7 PG (26-34); Mean Corpuscular Volume 88.3 fL (80-100); Monocytes Absolute Auto 500 /uL (0-900); Monocytes Percent Auto 8.5 % (3-14); Neutrophils Absolute Auto 3300 /uL (1500-7000); Neutrophils Percent Auto 60.6 % (50-75); Platelet Count 271 X10^3/uL (150-400); Red Blood Cell Count 4.35 X10^6/uL (4.0-5.2); Red Cell Distribution Width 12.7 % (11.6-14.8); White Blood Cell Count 5.4 X10^3/uL (4.5-11.0)
[2021-08-06 16:45] LABS: Alanine Aminotransferase 11 IU/L (<35); Albumin 4.2 g/dL (3.5-5.0); Albumin Globulin Ratio 1.4 (1.0-2.8); Alkaline Phosphatase 54 U/L (38-126); Aspartate Aminotransferase 22 IU/L (14-36); BUN Creatinine Ratio 15.8 (6-22); Bilirubin Total 0.7 mg/dL (0.2-1.3); Blood Urea Nitrogen 12 mg/dL (7-17); Calcium 8.5 mg/dL (8.4-10.2); Carbon Dioxide 27 mmol/L (22-32); Chloride 105 mmol/L (98-107); Estimated Glomerular Filt Rate > 60 mL/min (>60); Globulin 3.1 g/dL (1.7-4.1); Glucose 89 mg/dL (70-100); HEMOLYSIS < 15 (0-50); Potassium 3.6 mmol/L (3.4-5.1); Sodium 139 mmol/L (137-145); Total Protein 7.3 g/dL (6.3-8.2)
[2021-08-06 19:11] VITALS: BP 119/64; PULSE 81; RESP 16; O2SAT 99
== END 2021-08-06 19:21 | disposition home or self-care (01) ==
PROVIDERS: Emergency Provider Emergency Medicine; PCP Family Medicine
DX: G47.9 Sleep disorder, unspecified (principal); F43.10 Post-traumatic stress disorder, unspecified; F32.9 Major depressive disorder, single episode, unspecified; F41.9 Anxiety disorder, unspecified; G89.4 Chronic pain syndrome
CPT/HCPCS: 36415; 70553; 72156; 80053; 81003; 81025; 85025; 96374; 99284; A9579; J2060

== ENCOUNTER 2021-08-16 15:37 | Emergency (ER) | payer OTHER, SELFPAY ==
[2021-08-16 15:53] VITALS: BP 157/91; PULSE 93; RESP 16; TEMP 35.7; O2SAT 100
--- NOTE | 2021-08-16 17:36 | PC.NURSE ---
Responded to call light to find pt crying, reports she has a long history of medical issues and concerned about receiving appropriate care. Pt reports she has not slept in a while and her family is worried. Denies SI, states has had SI in the past but does not currently. Reports she feels providers make quick judgment on her and she is not always listened to. Therapeutic communication provided, listened to pt, updated pt on plan of care including next steps. Brought pt back upon request to speak to pt. Pt sitting on stretcher calm and cooperative.
--- NOTE | 2021-08-16 18:30 | ED.NECK ---
HPI - Neck Pain/Injury General Chief Complaint: Neck Pain/Injury Stated Complaint: Can't Sleep Time Seen by Provider: 08/16/21 16:45 Related Data Home Medications Medication Instructions Recorded Confirmed cetirizine 10 mg chewable tablet 10 mg PO QDAY ##0 11/27/16 06/21/17 azathioprine 50 mg tablet 50 mg PO DAILY 06/19/17 06/21/17 budesonide 3 mg 3 mg PO DAILY 06/19/17 06/21/17 capsule,delayed,extended release ergocalciferol (vitamin D2) 1,250 50,000 unit PO QWEEK 06/19/17 06/21/17 mcg (50,000 unit) capsule polyethylene glycol 3350 17 17 g PO DAILY 06/19/17 06/21/17 gram/dose oral powder ranitidine HCl 150 mg tablet 150 mg PO DAILY 06/19/17 06/21/17 ustekinumab 90 mg/mL subcutaneous See Rx Instructions .Route .COMPLEX 06/19/17 06/21/17 syringe Previous Rx's Medication Instructions Recorded duloxetine 30 mg capsule,delayed 30 mg PO QDAY #30 caps 10/31/15 release (Cymbalta) prazosin 1 mg capsule 1 mg PO SEE INSTRUCTIONS #60 caps 10/31/15 tramadol 50 mg tablet 50 mg PO Q6H PRN pain #10 tabs 06/21/17 lorazepam 0.5 mg tablet 0.5 mg PO BEDTIME PRN sleep #10 04/25/20 tabs prazosin 1 mg capsule 1 mg PO BEDTIME #30 caps 08/06/21 quetiapine 50 mg tablet (Seroquel) 50 mg PO BEDTIME #60 tabs 08/06/21 Allergies Allergy/AdvReac Type Severity Reaction Status Date / Time sumatriptan [SUMATRIPTAN] Allergy Severe MUSCLE Verified 09/11/20 18:21 RIGIDITY IN FACE olopatadine [From PATANOL] Allergy Intermediate RED AND Verified 09/11/20 18:21 SWOLLEN EYES Patient History Medical History (Updated 08/07/21 @ 08:10 by Jenna Gonzalez MD) Anxiety and depression Crohn disease Fibromyalgia Insomnia Panic attacks Surgical History No significant past surgical history Social History Smoking Status: Former smoker alcohol intake: never substance use type: does not use Smoking Status: Former smoker alcohol intake frequency: holidays/special occasions only Substance Use Type: marijuana Exam Initial Vital Signs Initial Vital Signs: Vital Signs Temperature 96.2 F L 08/16/21 15:53 Pulse Rate 93 H 08/16/21 15:53 Respiratory Rate 16 08/16/21 15:53 Blood Pressure 157/91 H 08/16/21 15:53 Pulse Oximetry 100 08/16/21 15:53 Oxygen Delivery Method 08/16/21 15:53 Course Vital Signs Vital signs: Vital Signs - 8 hr 08/16/21 15:53 Temperature 96.2 F L Pulse Rate 93 H Respiratory Rate 16 Blood Pressure 157/91 H Pulse Oximetry 100 Oxygen Delivery Method Room Air Discharge Plan Departure Prescriptions: No Action prazosin 1 MG capsule 1 mg PO SEE INSTRUCTIONS Qty: 60 2RF Label Comments: Taking 2mg duloxetine [Cymbalta] 30 MG capsule,delayed release(DR/EC) 30 mg PO QDAY Qty: 30 2RF cetirizine 10 MG tablet,chewable 10 mg PO QDAY Qty: 0 ergocalciferol (vitamin D2) 50,000 unit Capsule 50,000 unit PO QWEEK budesonide 3 mg Capsule,Delayed,Extend.Release 3 mg PO DAILY azathioprine 50 mg tablet 50 mg PO DAILY ustekinumab [Stelara] 90 mg/mL syringe See Rx Instructions .ROUTE .COMPLEX Rx Instructions: 90 mg subcutaneously every 8 weeks polyethylene glycol 3350 17 gram/dose powder 17 g PO DAILY ranitidine HCl 150 mg tablet 150 mg PO DAILY tramadol 50 mg tablet 50 mg PO Q6H PRN (Reason: pain) Qty: 10 0RF Rx Instructions: take with tylenol lorazepam 0.5 mg tablet 0.5 mg PO BEDTIME PRN (Reason: sleep) Qty: 10 0RF quetiapine [Seroquel] 50 mg tablet 50 mg PO BEDTIME Qty: 60 0RF prazosin 1 mg capsule 1 mg PO BEDTIME Qty: 30 0RF Referrals: Gerald Barnard MD [Primary Care Provider] -
--- NOTE | 2021-08-16 19:28 | ED.NECK ---
HPI - Neck Pain/Injury General Chief Complaint: Neck Pain/Injury Stated Complaint: Can't Sleep Time Seen by Provider: 08/16/21 16:45 Related Data Home Medications Medication Instructions Recorded Confirmed cetirizine 10 mg chewable tablet 10 mg PO QDAY ##0 11/27/16 06/21/17 azathioprine 50 mg tablet 50 mg PO DAILY 06/19/17 06/21/17 budesonide 3 mg 3 mg PO DAILY 06/19/17 06/21/17 capsule,delayed,extended release ergocalciferol (vitamin D2) 1,250 50,000 unit PO QWEEK 06/19/17 06/21/17 mcg (50,000 unit) capsule polyethylene glycol 3350 17 17 g PO DAILY 06/19/17 06/21/17 gram/dose oral powder ranitidine HCl 150 mg tablet 150 mg PO DAILY 06/19/17 06/21/17 ustekinumab 90 mg/mL subcutaneous See Rx Instructions .Route .COMPLEX 06/19/17 06/21/17 syringe Previous Rx's Medication Instructions Recorded duloxetine 30 mg capsule,delayed 30 mg PO QDAY #30 caps 10/31/15 release (Cymbalta) prazosin 1 mg capsule 1 mg PO SEE INSTRUCTIONS #60 caps 10/31/15 tramadol 50 mg tablet 50 mg PO Q6H PRN pain #10 tabs 06/21/17 lorazepam 0.5 mg tablet 0.5 mg PO BEDTIME PRN sleep #10 04/25/20 tabs prazosin 1 mg capsule 1 mg PO BEDTIME #30 caps 08/06/21 quetiapine 50 mg tablet (Seroquel) 50 mg PO BEDTIME #60 tabs 08/06/21 baclofen 20 mg tablet 20 mg PO TID PRN muscle pain #21 08/16/21 tabs Allergies Allergy/AdvReac Type Severity Reaction Status Date / Time sumatriptan [SUMATRIPTAN] Allergy Severe MUSCLE Verified 09/11/20 18:21 RIGIDITY IN FACE olopatadine [From PATANOL] Allergy Intermediate RED AND Verified 09/11/20 18:21 SWOLLEN EYES Patient History Medical History (Updated 08/16/21 @ 19:30 by Ronald Atwood MD) Anxiety and depression Crohn disease Fibromyalgia Insomnia Panic attacks Surgical History No significant past surgical history Social History Smoking Status: Former smoker alcohol intake: never substance use type: does not use Smoking Status: Former smoker alcohol intake frequency: holidays/special occasions only Substance Use Type: marijuana Exam Initial Vital Signs Initial Vital Signs: Vital Signs Temperature 96.2 F L 08/16/21 15:53 Pulse Rate 93 H 08/16/21 15:53 Respiratory Rate 16 08/16/21 15:53 Blood Pressure 157/91 H 08/16/21 15:53 Pulse Oximetry 100 08/16/21 15:53 Oxygen Delivery Method 08/16/21 15:53 Course Vital Signs Vital signs: Vital Signs - 8 hr 08/16/21 15:53 Temperature 96.2 F L Pulse Rate 93 H Respiratory Rate 16 Blood Pressure 157/91 H Pulse Oximetry 100 Oxygen Delivery Method Room Air Discharge Plan Departure Patient Disposition: Home Clinical Impression: Insomnia Instructions: Insomnia Activity Restrictions/Additional Instructions: No driving or operating machine you with new prescribed medications. Patient received family doctor in a week for re-evaluation. May continue home medications and keep Seroquel and 100 mg at bedtime. Return if worse if any questions or concerns Prescriptions: New baclofen 20 mg tablet 20 mg PO TID PRN (Reason: muscle pain) Qty: 21 0RF No Action prazosin 1 MG capsule 1 mg PO SEE INSTRUCTIONS Qty: 60 2RF Label Comments: Taking 2mg duloxetine [Cymbalta] 30 MG capsule,delayed release(DR/EC) 30 mg PO QDAY Qty: 30 2RF cetirizine 10 MG tablet,chewable 10 mg PO QDAY Qty: 0 ergocalciferol (vitamin D2) 50,000 unit Capsule 50,000 unit PO QWEEK budesonide 3 mg Capsule,Delayed,Extend.Release 3 mg PO DAILY azathioprine 50 mg tablet 50 mg PO DAILY ustekinumab [Stelara] 90 mg/mL syringe See Rx Instructions .ROUTE .COMPLEX Rx Instructions: 90 mg subcutaneously every 8 weeks polyethylene glycol 3350 17 gram/dose powder 17 g PO DAILY ranitidine HCl 150 mg tablet 150 mg PO DAILY tramadol 50 mg tablet 50 mg PO Q6H PRN (Reason: pain) Qty: 10 0RF Rx Instructions: take with tylenol lorazepam 0.5 mg tablet 0.5 mg PO BEDTIME PRN (Reason: sleep) Qty: 10 0RF quetiapine [Seroquel] 50 mg tablet 50 mg PO BEDTIME Qty: 60 0RF prazosin 1 mg capsule 1 mg PO BEDTIME Qty: 30 0RF Referrals: Gerald Barnard MD [Primary Care Provider] -
[2021-08-16] MEDS: BACLOFEN 10 MG TABLET 20 MG PO (19:38)
--- NOTE | 2021-08-16 19:40 | ED.NECK ---
HPI - Neck Pain/Injury General Chief Complaint: Neck Pain/Injury Stated Complaint: Can't Sleep Time Seen by Provider: 08/16/21 16:45 History of Present Illness HPI Narrative: Patient here for insomnia that is been accelerated in the past 2 years. Patient does have lot of cervical spine problems because and spasticity and pain that keeps her awake at night. She never gets good sleep. She did have an outpatient MRI of the cervical spine by primary care. She will be getting referral to Spine specialties. Patient currently on Seroquel at night by provider to help her sleep but is not been effective. No hallucinations. No SI or HI. Related Data Home Medications Medication Instructions Recorded Confirmed cetirizine 10 mg chewable tablet 10 mg PO QDAY ##0 11/27/16 06/21/17 azathioprine 50 mg tablet 50 mg PO DAILY 06/19/17 06/21/17 budesonide 3 mg 3 mg PO DAILY 06/19/17 06/21/17 capsule,delayed,extended release ergocalciferol (vitamin D2) 1,250 50,000 unit PO QWEEK 06/19/17 06/21/17 mcg (50,000 unit) capsule polyethylene glycol 3350 17 17 g PO DAILY 06/19/17 06/21/17 gram/dose oral powder ranitidine HCl 150 mg tablet 150 mg PO DAILY 06/19/17 06/21/17 ustekinumab 90 mg/mL subcutaneous See Rx Instructions .Route .COMPLEX 06/19/17 06/21/17 syringe Previous Rx's Medication Instructions Recorded duloxetine 30 mg capsule,delayed 30 mg PO QDAY #30 caps 10/31/15 release (Cymbalta) prazosin 1 mg capsule 1 mg PO SEE INSTRUCTIONS #60 caps 10/31/15 tramadol 50 mg tablet 50 mg PO Q6H PRN pain #10 tabs 06/21/17 lorazepam 0.5 mg tablet 0.5 mg PO BEDTIME PRN sleep #10 04/25/20 tabs prazosin 1 mg capsule 1 mg PO BEDTIME #30 caps 08/06/21 quetiapine 50 mg tablet (Seroquel) 50 mg PO BEDTIME #60 tabs 08/06/21 baclofen 20 mg tablet 20 mg PO TID PRN muscle pain #21 08/16/21 tabs Allergies Allergy/AdvReac Type Severity Reaction Status Date / Time sumatriptan [SUMATRIPTAN] Allergy Severe MUSCLE Verified 09/11/20 18:21 RIGIDITY IN FACE olopatadine [From PATANOL] Allergy Intermediate RED AND Verified 09/11/20 18:21 SWOLLEN EYES Review of Systems Review of Systems Narrative: GENERAL: Denies chills, fatigue, malaise, fever, sweats. HEENT: Denies sinus pain, ear pain, sore throat RESPIRATORY: Denies dyspnea, cough CARDIOVASCULAR: Denies chest pain, palpitations GASTROINTESTINAL: Denies nausea, vomiting, abdominal pain : Denies dysuria, frequency, hematuria MUSCULOSKELETAL: denies muscle or bony pain SKIN: Denies rash, skin lesions NEUROLOGIC: Denies weakness, numbness PSYCH: Negative before SI or HI. Positive for sleep disturbance. ROS Unobtainable: All systems reviewed & are unremarkable except as noted in HPI and below Patient History Medical History Anxiety and depression Crohn disease Fibromyalgia Insomnia Panic attacks Surgical History No significant past surgical history Social History Smoking Status: Former smoker alcohol intake: never substance use type: does not use Smoking Status: Former smoker alcohol intake frequency: holidays/special occasions only Substance Use Type: marijuana Exam Narrative Exam Narrative: GENERAL: in no distress, not toxic not dyspneic HEAD: Normocephalic. EYES: Pupils equal round No scleral icterus. ENT: Mucous membranes moist. NECK: Trachea midline. There is bilateral para cervical muscle tenderness and spasm. Tenderness and spasm to the trapezius muscles as well. No midline tenderness or step-off. CARDIOVASCULAR: Regular rate and rhythm without murmurs RESPIRATORY: Clear to auscultation. Breath sounds equal bilaterally. No wheezes, rales, or rhonchi. GASTROINTESTINAL: Abdomen soft, non-tender BACK: No flank tenderness. NEURO: AOx4. SKIN: Warm and dry PSYCH: Mildly anxious, is cooperative, no SI or HI. Not combative Initial Vital Signs Initial Vital Signs: Vital Signs Temperature 96.2 F L 08/16/21 15:53 Pulse Rate 93 H 08/16/21 15:53 Respiratory Rate 16 08/16/21 15:53 Blood Pressure 157/91 H 08/16/21 15:53 Pulse Oximetry 100 08/16/21 15:53 Oxygen Delivery Method 08/16/21 15:53 Course Course Course Narrative: No new issues during course of stay Orders Ordered: Discontinued Medications Baclofen (Baclofen 10 Mg Tablet) 20 mg PO NOW ONE Stop: 08/16/21 19:29 Last Admin: 08/16/21 19:38 Dose: 20 mg Documented By: AT Reevaluation(s) Reevaluation #1: Reviewed medications with patient and agree on back within has trial medication to help for muscle spasticity and to help her sleep. Patient understands no driving or operating machinery with this medication. Partner at bedside. Time: 19:43 Vital Signs Vital signs: Vital Signs - 8 hr 08/16/21 15:53 Temperature 96.2 F L Pulse Rate 93 H Respiratory Rate 16 Blood Pressure 157/91 H Pulse Oximetry 100 Oxygen Delivery Method Room Air MDM - Neck Pain/Injury Differential Diagnosis Differential diagnosis: Likely other (Insomnia/muscle spasticity) MDM Narrative Medical decision making narrative: Appropriate for discharge home. No blood work or imaging indicated. Patient here for insomnia. Review of patient's medications at this time baclofen is reasonable to start for least interaction with her current medications. Return precautions reviewed with her. Discharge Plan Departure Patient Disposition: Home Clinical Impression: Insomnia Instructions: Insomnia Activity Restrictions/Additional Instructions: No driving or operating machine you with new prescribed medications. Patient received family doctor in a week for re-evaluation. May continue home medications and keep Seroquel and 100 mg at bedtime. Return if worse if any questions or concerns Prescriptions: New baclofen 20 mg tablet 20 mg PO TID PRN (Reason: muscle pain) Qty: 21 0RF No Action prazosin 1 MG capsule 1 mg PO SEE INSTRUCTIONS Qty: 60 2RF Label Comments: Taking 2mg duloxetine [Cymbalta] 30 MG capsule,delayed release(DR/EC) 30 mg PO QDAY Qty: 30 2RF cetirizine 10 MG tablet,chewable 10 mg PO QDAY Qty: 0 ergocalciferol (vitamin D2) 50,000 unit Capsule 50,000 unit PO QWEEK budesonide 3 mg Capsule,Delayed,Extend.Release 3 mg PO DAILY azathioprine 50 mg tablet 50 mg PO DAILY ustekinumab [Stelara] 90 mg/mL syringe See Rx Instructions .ROUTE .COMPLEX Rx Instructions: 90 mg subcutaneously every 8 weeks polyethylene glycol 3350 17 gram/dose powder 17 g PO DAILY ranitidine HCl 150 mg tablet 150 mg PO DAILY tramadol 50 mg tablet 50 mg PO Q6H PRN (Reason: pain) Qty: 10 0RF Rx Instructions: take with tylenol lorazepam 0.5 mg tablet 0.5 mg PO BEDTIME PRN (Reason: sleep) Qty: 10 0RF quetiapine [Seroquel] 50 mg tablet 50 mg PO BEDTIME Qty: 60 0RF prazosin 1 mg capsule 1 mg PO BEDTIME Qty: 30 0RF Referrals: Gerald Barnard MD [Primary Care Provider] - Visit Report Forms: Patient Portal/API
[2021-08-16 19:47] VITALS: BP 146/74; PULSE 90; RESP 18; O2SAT 99
== END 2021-08-16 19:48 | disposition home or self-care (01) ==
PROVIDERS: Emergency Provider Emergency Medicine; PCP Family Medicine
DX: G47.00 Insomnia, unspecified (principal)
CPT/HCPCS: 99283

== ENCOUNTER 2024-04-04 13:55 | Inpatient (IN) | payer OTHER, SELFPAY ==
[2024-04-04] VITALS (25 sets, daily range): BP systolic 95–151; BP diastolic 51–89; PULSE 74–92; RESP 18–22; TEMP 36.4; O2SAT 94–100; BMI 26.6
[2024-04-04] MEDS: ONDANSETRON 4 MG/2 ML INJ IV (14:23)
[2024-04-04 14:31] LABS: Add Manual Diff / Slide Review NO; Basophils Absolute Auto 100 /uL (0-100); Basophils Percent Auto 0.4 % (0-2); Eosinophils Absolute Auto 0 /uL (0-450); Eosinophils Percent Auto 0.3 % (2-4); Hematocrit 46.9 % (36-46); Hemoglobin 15.8 g/dL (12.0-16.0); Lymphocytes Absolute Auto 1200 /uL (1100-4500); Lymphocytes Percent Auto 10.7 % (25-40); Mean Corpuscular HGB Conc 33.8 % (30-36); Mean Corpuscular Hemoglobin 29.9 PG (26-34); Mean Corpuscular Volume 88.5 fL (80-100); Monocytes Absolute Auto 600 /uL (0-900); Monocytes Percent Auto 5.2 % (3-14); Neutrophils Absolute Auto 9500 /uL (1500-7000); Neutrophils Percent Auto 83.4 % (50-75); Platelet Count 299 X10^3/uL (150-400); Red Cell Distribution Width 12.9 % (11.6-14.8); White Blood Cell Count 11.4 X10^3/uL (4.5-11.0)
[2024-04-04 14:36] LABS: Alanine Aminotransferase 24 IU/L (<35); Albumin 4.8 g/dL (3.5-5.0); Alkaline Phosphatase 48 U/L (38-126); Aspartate Aminotransferase 37 IU/L (14-36); BUN Creatinine Ratio 17.9 (6-22); Bilirubin Total 0.7 mg/dL (0.2-1.3); Blood Urea Nitrogen 14 mg/dL (7-17); Calcium 9.3 mg/dL (8.4-10.2); Carbon Dioxide 20 mmol/L (22-32); Chloride 106 mmol/L (98-107); Estimated Glomerular Filt Rate > 60 mL/min (>60); Globulin 3.5 g/dL (1.7-4.1); Glucose 112 mg/dL (70-100); HEMOLYSIS 23 (0-50); Potassium 4.7 mmol/L (3.4-5.1); Sodium 137 mmol/L (137-145); Total Protein 8.3 g/dL (6.3-8.2)
[2024-04-04 14:37] LABS: Albumin Globulin Ratio 1.4 (1.0-2.8); Lipase 111 U/L (23-300)
[2024-04-04] MEDS: SODIUM CHLORIDE 0.9% 1,000 ML 1000 ML IV (14:52)
[2024-04-04] MEDS: HYDROMORPHONE 0.5 MG INJ IV (15:07)
--- NOTE | 2024-04-04 17:39 | DI.CT.S_ITS ---
PROCEDURE: CT ABDOMEN PELVIS W CON INDICATIONS: severe ab pain TECHNIQUE: After the administration of intravenous contrast, axial sections acquired from the lung bases to the pubic symphysis. Coronal and sagittal reformats were performed. For radiation dose reduction, the following was used: automated exposure control, adjustment of mA and/or kV according to patient size. COMPARISON: [facility], CT, CT IVP, 12/12/2023, 15:50. [facility], CT, CT ABDOMEN PELVIS WITH CONTRAST, 03/02/2023, 15:53. [facility], CT, CT ABDOMEN PELVIS W CON, 02/29/2020, 10:05. [facility], US, US PELVIC COMPLETE WITH TRANSVAGINAL, 12/12/2023, 16:28. FINDINGS: Image quality: Diagnostic. Lower Chest: No significant findings. ABDOMEN: Liver: No solid mass. Gallbladder: No radiopaque gallstones or wall thickening. Biliary ducts: No biliary dilation. Pancreas: No ductal dilation. Spleen: Size is within normal limits. Adrenal Glands: No adrenal nodules. Kidneys and Ureters: No hydronephrosis. No solid mass. No complex renal cystic lesion which requires follow up. Bowel and peritoneum: Dilated fluid-filled loops of small bowel can be seen proximally, measuring up to 3.5 cm. There is a transition point seen within the right lower quadrant of the abdomen, as on series 3, image 41, where there is thickened small bowel. Distal to this point, the small bowel is decompressed. Milder areas of small bowel narrowing can be seen proximal to this transition point. Areas of stool formation can be seen within the small bowel. No abscess is seen. No findings of free air can be seen. The colon is relatively decompressed. There is a small amount of ascites seen adjacent to the liver and also layering within the pelvis. Ventral Wall: No significant ventral hernia. Abdominal Nodes: No retroperitoneal or mesenteric adenopathy by size criteria. Vessels: Aorta and inferior vena cava are normal in size. PELVIS: Pelvic Organs: The IUD is seen at its expected location. No adnexal masses are seen on either side. Bladder: No bladder wall thickening, accounting for underdistention. Pelvic Nodes: No enlarged lymph nodes. Miscellaneous: No inguinal hernias are seen. Bones: No aggressive osseous abnormality. Mild levoconvex scoliotic curvature is noted. IMPRESSION: Small-bowel obstruction, with a transition point seen within the right lower quadrant of the abdomen, where there is thickened small bowel present. A mild amount of ascites is seen. Additional findings: IUD Dictated by: Wiley Brink M.D. on 04/04/2024 at 17:30 Approved by: Wiley Brink M.D. on 04/04/2024 at 17:34
[2024-04-04] MEDS: methylPREDNISolone 125 MG/2 ML VIAL IV (17:50)
[2024-04-04] MEDS: HYDROMORPHONE 1 MG INJ IV ×2 (17:51→19:08)
--- NOTE | 2024-04-04 18:10 | ED_ITS ---
HPI - Abdominal Pain <Jannette Nesbitt DO - Last Filed: 04/06/24 16:02> General Chief Complaint: Abdominal Pain Stated Complaint: severe abd pain Time Seen by Provider: 04/04/24 17:24 Source: patient and family Mode of arrival: Wheelchair History of Present Illness HPI narrative: Patient is a 38-year-old female history of Crohn's disease presenting today with ongoing abdominal pain. She says it got significantly worse today. She has not on any are full Crohn's medication. She has had trouble getting care. She was diagnosed with colonoscopy about 10 years ago. She is now being worked up for ankylosing spondylitis but being pushed around too many specialists he will not take her of the problems. She denies any diarrhea nausea vomiting or fever but diffusely tender. Related Data Home Medications Medication Instructions Recorded Confirmed duloxetine 30 mg capsule,delayed 40 mg PO QDAY 04/05/24 04/05/24 release (Cymbalta) gabapentin 100 mg capsule 300 mg PO 1XD 04/05/24 04/05/24 Previous Rx's Medication Instructions Recorded quetiapine 50 mg tablet (Seroquel) 50 mg PO BEDTIME #60 tabs 08/06/21 prednisone 20 mg tablet 40 mg (2 x 20 mg) PO DAILY #28 tabs 04/06/24 Allergies Allergy/AdvReac Type Severity Reaction Status Date / Time sumatriptan [SUMATRIPTAN] Allergy Severe MUSCLE Verified 09/11/20 18:21 RIGIDITY IN FACE olopatadine [From PATANOL] Allergy Intermediate RED AND Verified 09/11/20 18:21 SWOLLEN EYES Patient History <DO Michael Carbajal Last Filed: 04/06/24 16:02> Medical History Fibromyalgia Anxiety and depression Crohn disease Insomnia Panic attacks Surgical History No significant past surgical history Social History household members: spouse and children Smoking Status: Former smoker alcohol intake: never substance use type: does not use Smoking Status: Former smoker alcohol intake frequency: holidays/special occasions only Exam <DO Michael Carbajal Last Filed: 04/06/24 16:02> Initial Vital Signs Initial Vital Signs: Vital Signs Temperature 97.6 F 04/04/24 14:02 Pulse Rate 90 04/04/24 14:02 Respiratory Rate 22 04/04/24 14:02 Blood Pressure 151/83 H 04/04/24 14:02 Pulse Oximetry 100 04/04/24 14:02 Oxygen Delivery Method Room Air 04/04/24 14:02 GENERAL: 38-year-old female appears very uncomfortable HEENT: Head atraumatic,EOMI, pupils reactive, face symmetric, moist mucous membranes CARDIOVASCULAR: Regular rate and rhythm without murmurs, rubs or gallops. RESPIRATORY: Breath sounds equal bilaterally, no wheezes rales or rhonchi. ABDOMEN: Soft but diffusely tender no distention or guarding EXTREMITIES: Normal range of motion, no clubbing or edema. Neurovascularly intact NEUROLOGICAL: Alert and oriented x4.Normal gait and speech. Cranial nerves II through XII grossly intact. SKIN: Warm, dry, no laceration, no petechiae, no rashes or lesions. <Erich Lara MD - Last Filed: 04/05/24 04:55> Initial Vital Signs Initial Vital Signs: Vital Signs Temperature 97.6 F 04/04/24 14:02 Pulse Rate 90 04/04/24 14:02 Respiratory Rate 22 04/04/24 14:02 Blood Pressure 151/83 H 04/04/24 14:02 Pulse Oximetry 100 04/04/24 14:02 Oxygen Delivery Method Room Air 04/04/24 14:02 Course <Jannette Nesbitt DO - Last Filed: 04/06/24 16:02> Orders Ordered: Discontinued Medications Acetaminophen (Acetaminophen 650 Mg Supp) 650 mg ID Q6HR PRN PRN Reason: Fever/Mild Pain (1-3) Benzocaine (Benzocaine/Menthol 1 Ferdinand Pkt) 1 each PO Q1H PRN PRN Reason: THROAT PAIN Last Admin: 04/05/24 17:32 Dose: 1 each Documented By: Admin: 04/05/24 09:41 Dose: 1 each Documented By: Admin: 04/05/24 05:34 Dose: 1 each Documented By: Admin: 04/05/24 02:40 Dose: 1 each Documented By: JORGE Benzocaine/Butamben/Tetracaine HCl (Tetracaine/Benzocaine/Butamben (Cetacaine) Bottle) 1 spray TOP NOW ONE Stop: 04/04/24 19:10 Last Admin: 04/04/24 19:14 Dose: 1 spray Documented By: DHARMESH Bisacodyl (Bisacodyl 10 Mg Supp) 10 mg ID DAILY PRN PRN Reason: Constipation Diphenhydramine HCl (Diphenhydramine 50 Mg/Ml Vial) 25 mg IV NOW ONE Stop: 04/04/24 22:00 Last Admin: 04/04/24 22:02 Dose: 25 mg Documented By: DHARMESH Duloxetine HCl (Duloxetine 30 Mg Capsule) 40 mg PO DAILY [facility] Last Admin: 04/05/24 18:43 Dose: Not Given Documented By: VANITA Duloxetine HCl (Duloxetine 20 Mg Capsule) 40 mg PO DAILY [facility] Duloxetine HCl (Duloxetine 20 Mg Capsule) 40 mg PO DAILY [facility] Last Admin: 04/06/24 09:12 Dose: 40 mg Documented By: Admin: 04/05/24 17:30 Dose: 40 mg Documented By: KENIA Gabapentin (Gabapentin 100 Mg Capsule) 300 mg PO DAILY [facility] Last Admin: 04/06/24 09:13 Dose: 300 mg Documented By: Admin: 04/05/24 16:48 Dose: 300 mg Documented By: KENIA Hydromorphone HCl (Hydromorphone 0.5 Mg Inj) 0.5 mg IV NOW ONE Stop: 04/04/24 15:06 Last Admin: 04/04/24 15:07 Dose: 0.5 mg Documented By: DHARMESH Hydromorphone HCl (Hydromorphone 1 Mg Inj) 1 mg IV NOW ONE Stop: 04/04/24 17:40 Last Admin: 04/04/24 17:51 Dose: 1 mg Documented By: DHARMESH Hydromorphone HCl (Hydromorphone 1 Mg Inj) 1 mg IV NOW ONE Stop: 04/04/24 19:02 Last Admin: 04/04/24 19:08 Dose: 1 mg Documented By: DHARMESH Hydromorphone HCl (Hydromorphone 0.5 Mg Inj) 0.5 mg IV Q2H PRN PRN Reason: Pain, Moderate (4-6) Hydromorphone HCl (Hydromorphone 1 Mg Inj) 1 mg IV Q2H PRN PRN Reason: Pain, Severe (7-10) Sodium Chloride (Normal Saline 0.9%) 1,000 mls @ 1,000 mls/hr IV BOLUS ONE Stop: 04/04/24 15:49 Last Infusion: 04/04/24 17:27 Dose: Infused Documented By: Admin: 04/04/24 14:52 Dose: 1,000 mls/hr Documented By: DHARMESH Sodium Chloride (Normal Saline 0.9%) 1,000 mls @ 125 mls/hr IV CONT [facility] Last Infusion: 04/05/24 03:58 Dose: 0 mls/hr Documented By: Admin: 04/04/24 22:11 Dose: 125 mls/hr Documented By: DHARMESH Lactated Ringer's (Lactated Ringers) 1,000 mls @ 100 mls/hr IV CONT [facility] Last Admin: 04/05/24 03:00 Dose: 100 mls/hr Documented By: JORGE Lorazepam (Lorazepam 2 Mg/Ml Inj) 0.5 mg IV Q2HR PRN PRN Reason: Anxiety Methylprednisolone (Methylprednisolone 125 Mg/2 Ml Vial) 125 mg IV NOW ONE Stop: 04/04/24 17:40 Last Admin: 04/04/24 17:50 Dose: 125 mg Documented By: DHARMESH Methylprednisolone (Methylprednisolone 40 Mg/Ml Vial) 40 mg IV DAILY [facility] Last Admin: 04/06/24 09:12 Dose: 40 mg Documented By: Admin: 04/05/24 09:20 Dose: 40 mg Documented By: KENIA Naloxone HCl (Naloxone 0.4 Mg/Ml Vial) 0.2 mg IV Q2MIN PRN PRN Reason: Opiate Reversal Ondansetron HCl (Ondansetron 4 Mg/2 Ml Inj) 4 mg IV NOW PRN PRN Reason: Nausea And Vomiting Last Admin: 04/04/24 14:23 Dose: 4 mg Documented By: DHARMESH Ondansetron HCl (Ondansetron 4 Mg Odt) 4 mg PO NOW PRN PRN Reason: Nausea And Vomiting Ondansetron HCl (Ondansetron 4 Mg/2 Ml Inj) 4 mg IV Q4HR PRN PRN Reason: nausea Pantoprazole Sodium (Pantoprazole 40 Mg Vial) 40 mg IV DAILY [facility] Last Admin: 04/06/24 09:12 Dose: 40 mg Documented By: Admin: 04/05/24 09:20 Dose: 40 mg Documented By: KENIA Promethazine HCl (Promethazine 12.5 Mg Supp) 12.5 mg ID Q6HR PRN PRN Reason: Nausea And Vomiting Quetiapine Fumarate (Quetiapine 25 Mg Tablet) 50 mg PO BEDTIME [facility]I Last Admin: 04/05/24 20:04 Dose: 50 mg Documented By: Simethicone (Simethicone 80 Mg Tablet) 80 mg PO QID PRN PRN Reason: Flatulence Last Admin: 04/06/24 11:12 Dose: 80 mg Documented By: KENIA Vital Signs Vital signs: Vital Signs - 8 hr 04/04/24 21:00 04/04/24 21:00 04/04/24 21:30 Pulse Rate 87 Respiratory Rate Blood Pressure 125/67 120/65 Pulse Oximetry 95 04/04/24 21:30 04/04/24 22:00 04/04/24 22:00 Pulse Rate 86 84 Respiratory Rate 18 Blood Pressure 116/60 Pulse Oximetry 96 95 04/04/24 22:30 04/04/24 22:30 04/04/24 23:00 Pulse Rate 79 Respiratory Rate Blood Pressure 115/64 113/59 L Pulse Oximetry 96 04/04/24 23:00 04/04/24 23:30 04/04/24 23:30 Pulse Rate 80 79 Respiratory Rate Blood Pressure 95/51 L Pulse Oximetry 94 94 04/04/24 23:58 04/04/24 23:58 04/05/24 00:00 Pulse Rate 91 H Respiratory Rate Blood Pressure 112/61 113/67 Pulse Oximetry 96 04/05/24 00:00 04/05/24 00:30 04/05/24 00:30 Pulse Rate 82 85 Respiratory Rate Blood Pressure 117/68 Pulse Oximetry 95 96 <Erich Lara MD - Last Filed: 04/05/24 04:55> Orders Ordered: Discontinued Medications Acetaminophen (Acetaminophen 650 Mg Supp) 650 mg ID Q6HR PRN PRN Reason: Fever/Mild Pain (1-3) Benzocaine (Benzocaine/Menthol 1 Ferdinand Pkt) 1 each PO Q1H PRN PRN Reason: THROAT PAIN Last Admin: 04/05/24 17:32 Dose: 1 each Documented By: Admin: 04/05/24 09:41 Dose: 1 each Documented By: Admin: 04/05/24 05:34 Dose: 1 each Documented By: Admin: 04/05/24 02:40 Dose: 1 each Documented By: JORGE Benzocaine/Butamben/Tetracaine HCl (Tetracaine/Benzocaine/Butamben (Cetacaine) Bottle) 1 spray TOP NOW ONE Stop: 04/04/24 19:10 Last Admin: 04/04/24 19:14 Dose: 1 spray Documented By: DHARMESH Bisacodyl (Bisacodyl 10 Mg Supp) 10 mg ID DAILY PRN PRN Reason: Constipation Diphenhydramine HCl (Diphenhydramine 50 Mg/Ml Vial) 25 mg IV NOW ONE Stop: 04/04/24 22:00 Last Admin: 04/04/24 22:02 Dose: 25 mg Documented By: DHARMESH Duloxetine HCl (Duloxetine 30 Mg Capsule) 40 mg PO DAILY [facility] Last Admin: 04/05/24 18:43 Dose: Not Given Documented By: [facility] Duloxetine HCl (Duloxetine 20 Mg Capsule) 40 mg PO DAILY [facility] Duloxetine HCl (Duloxetine 20 Mg Capsule) 40 mg PO DAILY [facility] Last Admin: 04/06/24 09:12 Dose: 40 mg Documented By: Admin: 04/05/24 17:30 Dose: 40 mg Documented By: KENIA Gabapentin (Gabapentin 100 Mg Capsule) 300 mg PO DAILY [facility] Last Admin: 04/06/24 09:13 Dose: 300 mg Documented By: Admin: 04/05/24 16:48 Dose: 300 mg Documented By: KENIA Hydromorphone HCl (Hydromorphone 0.5 Mg Inj) 0.5 mg IV NOW ONE Stop: 04/04/24 15:06 Last Admin: 04/04/24 15:07 Dose: 0.5 mg Documented By: DHARMESH Hydromorphone HCl (Hydromorphone 1 Mg Inj) 1 mg IV NOW ONE Stop: 04/04/24 17:40 Last Admin: 04/04/24 17:51 Dose: 1 mg Documented By: DHARMESH Hydromorphone HCl (Hydromorphone 1 Mg Inj) 1 mg IV NOW ONE Stop: 04/04/24 19:02 Last Admin: 04/04/24 19:08 Dose: 1 mg Documented By: DHARMESH Hydromorphone HCl (Hydromorphone 0.5 Mg Inj) 0.5 mg IV Q2H PRN PRN Reason: Pain, Moderate (4-6) Hydromorphone HCl (Hydromorphone 1 Mg Inj) 1 mg IV Q2H PRN PRN Reason: Pain, Severe (7-10) Sodium Chloride (Normal Saline 0.9%) 1,000 mls @ 1,000 mls/hr IV BOLUS ONE Stop: 04/04/24 15:49 Last Infusion: 04/04/24 17:27 Dose: Infused Documented By: Admin: 04/04/24 14:52 Dose: 1,000 mls/hr Documented By: DHARMESH Sodium Chloride (Normal Saline 0.9%) 1,000 mls @ 125 mls/hr IV CONT [facility] Last Infusion: 04/05/24 03:58 Dose: 0 mls/hr Documented By: Admin: 04/04/24 22:11 Dose: 125 mls/hr Documented By: DHARMESH Lactated Ringer's (Lactated Ringers) 1,000 mls @ 100 mls/hr IV CONT [facility] Last Admin: 04/05/24 03:00 Dose: 100 mls/hr Documented By: JORGE Lorazepam (Lorazepam 2 Mg/Ml Inj) 0.5 mg IV Q2HR PRN PRN Reason: Anxiety Methylprednisolone (Methylprednisolone 125 Mg/2 Ml Vial) 125 mg IV NOW ONE Stop: 04/04/24 17:40 Last Admin: 04/04/24 17:50 Dose: 125 mg Documented By: DHARMESH Methylprednisolone (Methylprednisolone 40 Mg/Ml Vial) 40 mg IV DAILY [facility] Last Admin: 04/06/24 09:12 Dose: 40 mg Documented By: Admin: 04/05/24 09:20 Dose: 40 mg Documented By: KENIA Naloxone HCl (Naloxone 0.4 Mg/Ml Vial) 0.2 mg IV Q2MIN PRN PRN Reason: Opiate Reversal Ondansetron HCl (Ondansetron 4 Mg/2 Ml Inj) 4 mg IV NOW PRN PRN Reason: Nausea And Vomiting Last Admin: 04/04/24 14:23 Dose: 4 mg Documented By: DHARMESH Ondansetron HCl (Ondansetron 4 Mg Odt) 4 mg PO NOW PRN PRN Reason: Nausea And Vomiting Ondansetron HCl (Ondansetron 4 Mg/2 Ml Inj) 4 mg IV Q4HR PRN PRN Reason: nausea Pantoprazole Sodium (Pantoprazole 40 Mg Vial) 40 mg IV DAILY [facility] Last Admin: 04/06/24 09:12 Dose: 40 mg Documented By: Admin: 04/05/24 09:20 Dose: 40 mg Documented By: KENIA Promethazine HCl (Promethazine 12.5 Mg Supp) 12.5 mg ID Q6HR PRN PRN Reason: Nausea And Vomiting Quetiapine Fumarate (Quetiapine 25 Mg Tablet) 50 mg PO BEDTIME [facility] Last Admin: 04/05/24 20:04 Dose: 50 mg Documented By: Simethicone (Simethicone 80 Mg Tablet) 80 mg PO QID PRN PRN Reason: Flatulence Last Admin: 04/06/24 11:12 Dose: 80 mg Documented By: KENIA Vital Signs Vital signs: Vital Signs - 8 hr 04/04/24 21:00 04/04/24 21:00 04/04/24 21:30 Pulse Rate 87 Respiratory Rate Blood Pressure 125/67 120/65 Pulse Oximetry 95 04/04/24 21:30 04/04/24 22:00 04/04/24 22:00 Pulse Rate 86 84 Respiratory Rate 18 Blood Pressure 116/60 Pulse Oximetry 96 95 04/04/24 22:30 04/04/24 22:30 04/04/24 23:00 Pulse Rate 79 Respiratory Rate Blood Pressure 115/64 113/59 L Pulse Oximetry 96 04/04/24 23:00 04/04/24 23:30 04/04/24 23:30 Pulse Rate 80 79 Respiratory Rate Blood Pressure 95/51 L Pulse Oximetry 94 94 04/04/24 23:58 04/04/24 23:58 04/05/24 00:00 Pulse Rate 91 H Respiratory Rate Blood Pressure 112/61 113/67 Pulse Oximetry 96 04/05/24 00:00 04/05/24 00:30 04/05/24 00:30 Pulse Rate 82 85 Respiratory Rate Blood Pressure 117/68 Pulse Oximetry 95 96 MDM - Abdominal Pain <Jannette Nesbitt DO - Last Filed: 04/06/24 16:02> Lab Data 04/06/24 06:00 04/06/24 06:00 Labs: Lab Results 04/04/24 04/04/24 Range/Units 14:15 19:35 WBC 11.4 H (4.5-11.0) X10^3/uL RBC 5.30 H (4.0-5.2) X10^6/uL Hgb 15.8 (12.0-16.0) g/dL Hct 46.9 H (36-46) % MCV 88.5 (80-100) fL MCH 29.9 (26-34) PG MCHC 33.8 (30-36) % RDW 12.9 (11.6-14.8) % Plt Count 299 (150-400) X10^3/uL Neut % (Auto) 83.4 H (50-75) % Lymph % (Auto) 10.7 L (25-40) % Cherry % (Auto) 5.2 (3-14) % Eos % (Auto) 0.3 L (2-4) % Baso % (Auto) 0.4 (0-2) % Neut # (Auto) 9500 H (9504-8719) /uL Lymph # (Auto) 1200 (3149-6351) /uL Cherry # (Auto) 600 (0-900) /uL Eos # (Auto) 0 (0-450) /uL Baso # (Auto) 100 (0-100) /uL Sodium 137 (137-145) mmol/L Potassium 4.7 (3.4-5.1) mmol/L Chloride 106 (98-107) mmol/L Carbon Dioxide 20 L (22-32) mmol/L BUN 14 (7-17) mg/dL Creatinine 0.78 (0.52-1.04) mg/dL Estimated GFR > 60 (>60) mL/min BUN/Creatinine Ratio 17.9 (6-22) Glucose 112 H (70-100) mg/dL Lactate 0.8 (0.7-2.1) mmol/L Calcium 9.3 (8.4-10.2) mg/dL Total Bilirubin 0.7 (0.2-1.3) mg/dL AST 37 H (14-36) IU/L ALT 24 (<35) IU/L Alkaline Phosphatase 48 (38-126) U/L Total Protein 8.3 H (6.3-8.2) g/dL Albumin 4.8 (3.5-5.0) g/dL Globulin 3.5 (1.7-4.1) g/dL Albumin/Globulin Ratio 1.4 (1.0-2.8) Lipase 111 (23-300) U/L Point of care testing: Point of Care Testing Test Results Negative Urine Dip Bedside Urine Glucose Negative Bedside Urine Bilirubin - Negative Bedside Urine Ketone + 15 Urine Specific [place] 1.015 Bedside Urine Occult Blood ++ Bedside Urine pH 6.5 Bedside Urine Protein - Negative Bedside Urine Urobilinogen - Negative Bedside Urine Nitrite - Negative Bedside Urine Leukocytes - Negative Esterase Imaging Data CT scan - abdomen/pelvis: Radiologist's Impression: PROCEDURE: CT ABDOMEN PELVIS W CON INDICATIONS: severe ab pain TECHNIQUE: After the administration of intravenous contrast, axial sections acquired from the lung bases to the pubic symphysis. Coronal and sagittal reformats were performed. For radiation dose reduction, the following was used: automated exposure control, adjustment of mA and/or kV according to patient size. COMPARISON: [facility], CT, CT IVP, 12/12/2023, 15:50. [facility], CT, CT ABDOMEN PELVIS WITH CONTRAST, 03/02/2023, 15:53. [facility], CT, CT ABDOMEN PELVIS W CON, 02/29/2020, 10:05. [facility], US, US PELVIC COMPLETE WITH TRANSVAGINAL, 12/12/2023, 16:28. FINDINGS: Image quality: Diagnostic. Lower Chest: No significant findings. ABDOMEN: Liver: No solid mass. Gallbladder: No radiopaque gallstones or wall thickening. Biliary ducts: No biliary dilation. Pancreas: No ductal dilation. Spleen: Size is within normal limits. Adrenal Glands: No adrenal nodules. Kidneys and Ureters: No hydronephrosis. No solid mass. No complex renal cystic lesion which requires follow up. Bowel and peritoneum: Dilated fluid-filled loops of small bowel can be seen proximally, measuring up to 3.5 cm. There is a transition point seen within the right lower quadrant of the abdomen, as on series 3, image 41, where there is thickened small bowel. Distal to this point, the small bowel is decompressed. Milder areas of small bowel narrowing can be seen proximal to this transition point. Areas of stool formation can be seen within the small bowel. No abscess is seen. No findings of free air can be seen. The colon is relatively decompressed. There is a small amount of ascites seen adjacent to the liver and also layering within the pelvis. Ventral Wall: No significant ventral hernia. Abdominal Nodes: No retroperitoneal or mesenteric adenopathy by size criteria. Vessels: Aorta and inferior vena cava are normal in size. PELVIS: Pelvic Organs: The IUD is seen at its expected location. No adnexal masses are seen on either side. Bladder: No bladder wall thickening, accounting for underdistention. Pelvic Nodes: No enlarged lymph nodes. Miscellaneous: No inguinal hernias are seen. Bones: No aggressive osseous abnormality. Mild levoconvex scoliotic curvature is noted. IMPRESSION: Small-bowel obstruction, with a transition point seen within the right lower quadrant of the abdomen, where there is thickened small bowel present. A mild amount of ascites is seen. Additional findings: IUD Dictated by: Wiley Brink M.D. on 04/04/2024 at 17:30 MDM Narrative Medical decision making narrative: 38-year-old female history of Crohn's disease not currently being managed treated presenting today with worsening abdominal pain. She appears to be quite uncomfortable abdomen is extremely tender. Blood work has been reviewed Mild leukocytosis WBC 11.4 no anemia CMP no electrolyte abnormality carbon dioxide 20 BUN 14 creatinine 0.7 Bilirubin 0.7 AST 37 ALT 20 lipase [address] abdomen pelvis does show a small bowel obstruction with transition point in the right lower quadrant there is thickened small bowel Patient has received IV fluids 2 doses of Dilaudid and Solu-Medrol 125 Patient 38-year-old female history of Crohn's disease not currently being treated presenting today with severe abdominal pain. Some nausea no active vomiting but reports that she has not passing any gas or stool. Blood work is overall reassuring WBC is 11.4. CT confirms small bowel obstruction. Patient states that she has had partial bowel obstructions before but never had this kind of pain. Patient signed out to Dr. Lara waiting NG placement lactate has been added, will need surgery and admission <Erich Lara MD - Last Filed: 04/05/24 04:55> Lab Data Labs: Lab Results 04/04/24 04/04/24 Range/Units 14:15 19:35 WBC 11.4 H (4.5-11.0) X10^3/uL RBC 5.30 H (4.0-5.2) X10^6/uL Hgb 15.8 (12.0-16.0) g/dL Hct 46.9 H (36-46) % MCV 88.5 (80-100) fL MCH 29.9 (26-34) PG MCHC 33.8 (30-36) % RDW 12.9 (11.6-14.8) % Plt Count 299 (150-400) X10^3/uL Neut % (Auto) 83.4 H (50-75) % Lymph % (Auto) 10.7 L (25-40) % Cherry % (Auto) 5.2 (3-14) % Eos % (Auto) 0.3 L (2-4) % Baso % (Auto) 0.4 (0-2) % Neut # (Auto) 9500 H (4216-7696) /uL Lymph # (Auto) 1200 (4695-8516) /uL Cherry # (Auto) 600 (0-900) /uL Eos # (Auto) 0 (0-450) /uL Baso # (Auto) 100 (0-100) /uL Sodium 137 (137-145) mmol/L Potassium 4.7 (3.4-5.1) mmol/L Chloride 106 (98-107) mmol/L Carbon Dioxide 20 L (22-32) mmol/L BUN 14 (7-17) mg/dL Creatinine 0.78 (0.52-1.04) mg/dL Estimated GFR > 60 (>60) mL/min BUN/Creatinine Ratio 17.9 (6-22) Glucose 112 H (70-100) mg/dL Lactate 0.8 (0.7-2.1) mmol/L Calcium 9.3 (8.4-10.2) mg/dL Total Bilirubin 0.7 (0.2-1.3) mg/dL AST 37 H (14-36) IU/L ALT 24 (<35) IU/L Alkaline Phosphatase 48 (38-126) U/L Total Protein 8.3 H (6.3-8.2) g/dL Albumin 4.8 (3.5-5.0) g/dL Globulin 3.5 (1.7-4.1) g/dL Albumin/Globulin Ratio 1.4 (1.0-2.8) Lipase 111 (23-300) U/L Point of care testing: Point of Care Testing Test Results Negative Urine Dip Bedside Urine Glucose Negative Bedside Urine Bilirubin - Negative Bedside Urine Ketone + 15 Urine Specific [place] 1.015 Bedside Urine Occult Blood ++ Bedside Urine pH 6.5 Bedside Urine Protein - Negative Bedside Urine Urobilinogen - Negative Bedside Urine Nitrite - Negative Bedside Urine Leukocytes - Negative Esterase Imaging Data CT scan - abdomen/pelvis: Radiologist's Impression: [address] [address] [address] Scan Report Signed Patient: Kathy Meyers MR#: [id number] : 1985 Acct:[id number] Age/Sex: 38 / F Date of Service: 04/04/24 Loc: ED Accession Number: [id number] Procedure: CT abdomen pelvis w con Ordering Provider: Jannette Nesbitt D.O. PROCEDURE: CT ABDOMEN PELVIS W CON INDICATIONS: severe ab pain TECHNIQUE: After the administration of intravenous contrast, axial sections acquired from the lung bases to the pubic symphysis. Coronal and sagittal reformats were performed. For radiation dose reduction, the following was used: automated exposure control, adjustment of mA and/or kV according to patient size. COMPARISON: [facility], CT, CT IVP, 12/12/2023, 15:50. [facility], CT, CT ABDOMEN PELVIS WITH CONTRAST, 03/02/2023, 15:53. [facility], CT, CT ABDOMEN PELVIS W CON, 02/29/2020, 10:05. [facility], US, US PELVIC COMPLETE WITH TRANSVAGINAL, 12/12/2023, 16:28. FINDINGS: Image quality: Diagnostic. Lower Chest: No significant findings. ABDOMEN: Liver: No solid mass. Gallbladder: No radiopaque gallstones or wall thickening. Biliary ducts: No biliary dilation. Pancreas: No ductal dilation. Spleen: Size is within normal limits. Adrenal Glands: No adrenal nodules. Kidneys and Ureters: No hydronephrosis. No solid mass. No complex renal cystic lesion which requires follow up. Bowel and peritoneum: Dilated fluid-filled loops of small bowel can be seen proximally, measuring up to 3.5 cm. There is a transition point seen within the right lower quadrant of the abdomen, as on series 3, image 41, where there is thickened small bowel. Distal to this point, the small bowel is decompressed. Milder areas of small bowel narrowing can be seen proximal to this transition point. Areas of stool formation can be seen within the small bowel. No abscess is seen. No findings of free air can be seen. The colon is relatively decompressed. There is a small amount of ascites seen adjacent to the liver and also layering within the pelvis. Ventral Wall: No significant ventral hernia. Abdominal Nodes: No retroperitoneal or mesenteric adenopathy by size criteria. Vessels: Aorta and inferior vena cava are normal in size. PELVIS: Pelvic Organs: The IUD is seen at its expected location. No adnexal masses are seen on either side. Bladder: No bladder wall thickening, accounting for underdistention. Pelvic Nodes: No enlarged lymph nodes. Miscellaneous: No inguinal hernias are seen. Bones: No aggressive osseous abnormality. Mild levoconvex scoliotic curvature is noted. IMPRESSION: Small-bowel obstruction, with a transition point seen within the right lower quadrant of the abdomen, where there is thickened small bowel present. A mild amount of ascites is seen. Additional findings: IUD Dictated by: Wiley Brink M.D. on 04/04/2024 at 17:30 Approved by: Wiley Brink M.D. on 04/04/2024 at 17:34 MDM Narrative Medical decision making narrative: 38-year-old female history of Crohn's disease not currently being managed treated presenting today with worsening abdominal pain. She appears to be quite uncomfortable abdomen is extremely tender. Blood work has been reviewed Mild leukocytosis WBC 11.4 no anemia CMP no electrolyte abnormality carbon dioxide 20 BUN 14 creatinine 0.7 Bilirubin 0.7 AST 37 ALT 20 lipase [address] abdomen pelvis does show a small bowel obstruction with transition point in the right lower quadrant there is thickened small bowel Patient has received IV fluids 2 doses of Dilaudid and Solu-Medrol 125 Patient 38-year-old female history of Crohn's disease not currently being treated presenting today with severe abdominal pain. Some nausea no active vomiting but reports that she has not passing any gas or stool. Blood work is overall reassuring WBC is 11.4. CT confirms small bowel obstruction. Patient states that she has had partial bowel obstructions before but never had this kind of pain. Patient signed out to Dr. Lara waiting NG placement lactate has been added, will need surgery and admission 04/04/2024, , Marco. Sign-out from Dr. Nesbitt. 38-year-old female reports history of Crohn's disease diagnosed about 10 years ago, currently not taking any remitted therapies, no steroids, previously followed by [facility] in [place] Dr. Almeida, now followed by GI Dr. Villarreal at [facility], recalls being on Stelara in the past about [id number], not tolerated, was going to see surgeon regarding some terminal ileum stenosis but unable to do bowel prep, last saw GI about 1 year ago, now this morning having multiple episodes of nausea and vomiting, with abdominal pain. Screening labs unremarkable. CT shows small bowel obstruction with transition point right lower quadrant. No free air mentioned. We will consult surgery. Lactate pending. Assumed interim care. CT abdomen and pelvis with IV contrast. Impressions: ?Small bowel obstruction, with a transition point seen within the right lower quadrant of the abdomen, where there is thickened small bowel present. A mild amount of ascites is seen. Additional findings IUD. ? See radiology report NG tube ordered, history of deviated septum, history of sinus surgery, left ?good? side not tolerated by attempts at NG tube placement by nursing. Lactate pending Lactate 0.8 normal. Patient reluctant to try any further attempts at NG tube placement at this time. Has been followed most recently by GI at [facility]. We will consult local general surgery. 2029, case discussed with general surgery Dr. Garcia, requests consultation with her GI provider/system [facility] 2229, still no call back from [facility] 2344, still no call back from [facility] system. We will reconsult Dr. Garcia and hospitalist here regarding admission. Patient would like to stay here for admission at this stage, and see if she responds to IV steroid. Aware that patient thus far refusing any further attempts at NGT placement. 0020, discussed with GI William Wallace, can admit here for now, would give SoluMedrol 40mg IV daily for further doses if being medically treated Patient did not tolerate placement of 18 [place] NG tube, we will see if we can locate a smaller 16 [place] size, patient willing to have attempts at placement if this smaller size is available 003, discussed with surgery Dr Garcia can consult, admit to hospitalist 0040, discussed with hospitalist Dr. House who accepts patient for admission to inpatient Critical Care Time <Erich Lara MD - Last Filed: 04/05/24 04:55> Critical Care Time Critical Care Time: Yes Total Critical Care Time: 35 Attestation: The high probability of a clinically significant, sudden or life threatening deterioration of the [gastrointestinal, abdominopelvic] system(s) required my full and direct attention, intervention and personal management. The aggregate critical care time was [35] minutes. This time is in addition to time spent performing reported procedures but includes the following: [x] Data Review and interpretation [x] Patient assessment and monitoring of vital signs [x] Documentation [x] Medication orders and management Discharge Plan Departure Patient Disposition: Admitted As Inpatient Clinical Impression: SBO (small bowel obstruction), Crohn's disease Admit Date/Time: 04/05/24 00:40 Admit Provider: Perry Bennett
[2024-04-04] MEDS: TETRACAINE/BENZOCAINE/BUTAMBEN (CETACAINE) BOTTLE 1 SPRAY TOP (19:14)
--- NOTE | 2024-04-04 19:27 | PC.NURSE ---
The patient was assessed for nasal trauma, surgery, and conditons. The patient has deviated septum, hx of nasal surgery, and sinus inflammation in the past. The pt was instructed that the nurse would try to place the NG tube and abort the attempt if they were not successful. An attempted of NG tube placement was made. Patient was placed in beachchair position and given po fluids to drink. She was given IV pain medication and Cetacain spray in her throat and nare. The NG tube was lubricated in the usual fashion and advanced into the left nare. The tube was advanced approx 10 inches until the tube met strict resistance. The patient was tolerating the procedure well. Several attempts were made to advance the NG Tube without success. The provider was made aware of the situation.
[2024-04-04 19:53] LABS: Lactate (Lactic Acid) 0.8 mmol/L (0.7-2.1)
--- NOTE | 2024-04-04 21:58 | PC.NURSE ---
pt complains of itching. provider notified and verbal ordered 25mg IV benadryl
[2024-04-04] MEDS: diphenhydrAMINE 50 MG/ML VIAL 25 MG IV (22:02)
[2024-04-04] MEDS: SODIUM CHLORIDE 0.9% 1,000 ML 125 ML IV (22:11)
[2024-04-05] VITALS (7 sets, daily range): BP systolic 113–131; BP diastolic 60–75; PULSE 79–86; RESP 14–24; TEMP 36.4–37.2; O2SAT 95–100; BMI 26.6
--- NOTE | 2024-04-05 00:55 | PC.NURSE ---
Second attempt made to insert NG tube (16) unsuccessful
[2024-04-05] MEDS: BENZOCAINE/MENTHOL 1 LOZ PKT 1 EACH PO ×4 (02:40→17:32)
--- NOTE | 2024-04-05 02:44 | P.HP_ITS ---
History of Present Illness History of Present Illness Chief complaint: severe abp pain Narrative: 38 y/o with PMH of Crohn's disease, previously on Stelara, Imuran, steroids, off from therapies since 1 year ago, who presented with nausea, vomiting and abdominal pain from SBO. She had several episodes of obstructions in the past, matching Crohn's exacerbations, each resolving w/o need for surgery. ED attending, Dr Lara discussed with GI Spanish Dr Wallace who recommended steroids and transfer if not improved. Given Solumedrol in ED and admitted to medicine with surgery notified. [facility] Medical History Fibromyalgia Anxiety and depression Crohn disease Insomnia Panic attacks Surgical History No significant past surgical history Social History household members: spouse and children Smoking Status: Former smoker alcohol intake: never substance use type: does not use Meds Home Medications and Allergies Home Medications Medication Instructions Recorded Confirmed Type quetiapine 50 mg tablet (Seroquel) 50 mg PO BEDTIME #60 tabs 08/06/21 04/05/24 Rx duloxetine 30 mg capsule,delayed 40 mg PO QDAY 04/05/24 04/05/24 History release (Cymbalta) gabapentin 100 mg capsule 300 mg PO 1XD 04/05/24 04/05/24 History Allergies Allergy/AdvReac Type Severity Reaction Status Date / Time sumatriptan [SUMATRIPTAN] Allergy Severe MUSCLE Verified 09/11/20 18:21 RIGIDITY IN FACE olopatadine [From PATANOL] Allergy Intermediate RED AND Verified 09/11/20 18:21 SWOLLEN EYES Review of Systems Review of Systems Narrative: General - w/o fever, chills, sweats GI - nausea, vomiting, RLQ pain, w/o BM in last ~ 12 hours. Without hematemesis or melena. CVS - w/o chest pain RS - w/o dyspnea UG - w/o dysuria Exam Vital Signs (past 8 hours): - 04/04/24 19:00 04/04/24 19:00 04/04/24 19:30 Pulse Rate 82 84 Respiratory Rate Blood Pressure 123/67 Pulse Oximetry 98 97 04/04/24 20:00 04/04/24 20:01 04/04/24 20:01 Pulse Rate 82 85 Respiratory Rate Blood Pressure 127/58 L Pulse Oximetry 96 97 04/04/24 20:30 04/04/24 20:30 04/04/24 21:00 Pulse Rate 80 Respiratory Rate Blood Pressure 137/66 125/67 Pulse Oximetry 96 04/04/24 21:00 04/04/24 21:30 04/04/24 21:30 Pulse Rate 87 86 Respiratory Rate 18 Blood Pressure 120/65 Pulse Oximetry 95 96 04/04/24 22:00 04/04/24 22:00 04/04/24 22:30 Pulse Rate 84 Respiratory Rate Blood Pressure 116/60 115/64 Pulse Oximetry 95 04/04/24 22:30 04/04/24 23:00 04/04/24 23:00 Pulse Rate 79 80 Respiratory Rate Blood Pressure 113/59 L Pulse Oximetry 96 94 04/04/24 23:30 04/04/24 23:30 04/04/24 23:58 Pulse Rate 79 91 H Respiratory Rate Blood Pressure 95/51 L Pulse Oximetry 94 96 04/04/24 23:58 04/05/24 00:00 04/05/24 00:00 Pulse Rate 82 Respiratory Rate Blood Pressure 112/61 113/67 Pulse Oximetry 95 04/05/24 00:30 04/05/24 00:30 Pulse Rate 85 Respiratory Rate Blood Pressure 117/68 Pulse Oximetry 96 Oxygen Delivery Method Room Air Narrative Exam Narrative: General - in no distress, at bedside GI - abdomen is obese and minimally distended HEENT - normocephalic Psych - anxious CVS - RRR RS - normal respiratory effort Objective Labs 04/04/24 14:15 04/04/24 14:15 Labs: Laboratory Results - last 24 hr 04/04/24 04/04/24 14:15 19:35 WBC 11.4 H RBC 5.30 H Hgb 15.8 Hct 46.9 H MCV 88.5 MCH 29.9 MCHC 33.8 RDW 12.9 Plt Count 299 Neut % (Auto) 83.4 H Lymph % (Auto) 10.7 L [place] % (Auto) 5.2 Eos % (Auto) 0.3 L Baso % (Auto) 0.4 Neut # (Auto) 9500 H Lymph # (Auto) 1200 [place] # (Auto) 600 Eos # (Auto) 0 Baso # (Auto) 100 Sodium 137 Potassium 4.7 Chloride 106 Carbon Dioxide 20 L BUN 14 Creatinine 0.78 Estimated GFR > 60 BUN/Creatinine Ratio 17.9 Glucose 112 H Lactate 0.8 Calcium 9.3 Total Bilirubin 0.7 AST 37 H ALT 24 Alkaline Phosphatase 48 Total Protein 8.3 H Albumin 4.8 Globulin 3.5 Albumin/Globulin Ratio 1.4 Lipase 111 Assessment & Plan Assessment and plan (1) Exacerbation of Crohn's disease of small intestine with intestinal obstruction: Status: Acute (2) Depression: Status: Acute (3) Anxiety: Status: Acute (4) Sleep disturbance: Status: Acute Assessment & Plan narrative: Exacerbation of Crohn's Disease with SBO - terminal ileitis - conservative treatment with steroid - likely to resolve, if not she will be transferred to primary GI - GI prophylaxis with Protonix - NPO, IVFs, pain management, antiemetics - surgery consultation. Surgery would be last resort however, with underlying inflammation Anxiety / Depression / Panic Attacks - Cymbalta and Seroquel at home - prn lorazepam iv instead while npo Fibromyalgia - on gabapentin at home - prn Dilaudid DVT prophylaxis - SCDs Time-Based Coding :: [TOTAL MINUTES] spent with patient and on the chart (including review of chart, obtaining history, exam, reviewing outside data, placing orders, documenting exam and treatment plan, and counseling patient) on [DATE]. Quality VTE Deep Vein Thrombosis/Pulmonary Embolism Present on Admission: No
--- NOTE | 2024-04-05 02:56 | PC.NURSE ---
0116: Patient arrived to floor via gurney from ED, pt was able to self transfer to bed. Spouse Daron at bedside. A&Ox4, VSWNL, RA, LS clear BL, no skin issues. Pt reports 5/10 pain in throat and hoarse voice d/t repeated NG tube insertion attempts. 0/10 pain in abd. Bowel sounds hypoactive x4. Pt denies N/V. Pt states no stool or flatus since Saturday 03/04 in AM. IVF running. Bed low/locked, call light within reach, pt resting comfortably, plan of care ongoing.
[2024-04-05] MEDS: LACTATED RINGERS 1,000 ML 100 ML IV (03:00)
--- NOTE | 2024-04-05 07:38 | PM.HP.1 ---
History of Present Illness History of Present Illness Date Patient Seen: 04/05/24 Chief complaint: severe abp pain Narrative: From night doctor: 38 y/o with PMH of Crohn's disease, previously on Stelara, Imuran, steroids, off from therapies since 1 year ago, who presented with nausea, vomiting and abdominal pain from SBO. She had several episodes of obstructions in the past, matching Crohn's exacerbations, each resolving w/o need for surgery. ED attending, Dr Lara discussed with GI [place] Island[place] Dr Wallace who recommended steroids and transfer if not improved. Given Solumedrol in ED and admitted to medicine with surgery notified. S: She was feeling better today. She was hungry, and has passed a small amount of gas. No nausea. She was had access issues with GI in his now fall at [address] She was not been on medical therapy for several years due to 3 failed colonoscopies. [facility]LY [facility], [facility] Medical History Fibromyalgia Anxiety and depression Crohn disease Insomnia Panic attacks Surgical History No significant past surgical history Social History household members: spouse and children Smoking Status: Former smoker alcohol intake: never substance use type: does not use Meds Home Medications and Allergies Home Medications Medication Instructions Recorded Confirmed Type quetiapine 50 mg tablet (Seroquel) 50 mg PO BEDTIME #60 tabs 08/06/21 04/05/24 Rx duloxetine 30 mg capsule,delayed 40 mg PO QDAY 04/05/24 04/05/24 History release (Cymbalta) gabapentin 100 mg capsule 300 mg PO 1XD 04/05/24 04/05/24 History Allergies Allergy/AdvReac Type Severity Reaction Status Date / Time sumatriptan [SUMATRIPTAN] Allergy Severe MUSCLE Verified 09/11/20 18:21 RIGIDITY IN FACE olopatadine [From PATANOL] Allergy Intermediate RED AND Verified 09/11/20 18:21 SWOLLEN EYES Review of Systems Review of Systems Narrative: All else reviewed and otherwise unremarkable except as noted in the history and physical. Exam Vital Signs (past 8 hours): - 04/04/24 23:58 04/04/24 23:58 04/05/24 00:00 Temperature Pulse Rate 91 H Respiratory Rate Blood Pressure 112/61 113/67 Pulse Oximetry 96 Oxygen Flow Rate 04/05/24 00:00 04/05/24 00:30 04/05/24 00:30 Temperature Pulse Rate 82 85 Respiratory Rate Blood Pressure 117/68 Pulse Oximetry 95 96 Oxygen Flow Rate 04/05/24 02:26 Temperature 98.9 F Pulse Rate 79 Respiratory Rate 18 Blood Pressure 131/75 Pulse Oximetry 100 Oxygen Flow Rate 0 Oxygen Delivery Method Room Air Oxygen Flow Rate 0 Narrative Exam Narrative: NAD, alert and oriented, fluent speech, calm. Normocephalic skull, EOMI, anicteric sclera, symmetric pupils. Oropharynx unremarkable, no droop. Neck supple, midline trachea, no adenopathy. Lungs clear, normal rate and effort. Heart regular, no murmur gallop or rub. Abdomen is soft, non distended and non tender. Normal bowel tones. Extremities are free of edema. Skin is free of rash or lesions. She was numerous tattoos. Joints are not swollen or deformed. Judgment appears to be normal. Objective Imaging CT scan - abdomen: Radiologist's impression: Small-bowel obstruction, with a transition point seen within the right lower quadrant of the abdomen, where there is thickened small bowel present. A mild amount of ascites is seen. Additional findings: IUD Labs 04/04/24 14:15 04/04/24 14:15 Labs: Laboratory Results - last 24 hr 04/04/24 04/04/24 14:15 19:35 WBC 11.4 H RBC 5.30 H Hgb 15.8 Hct 46.9 H MCV 88.5 MCH 29.9 MCHC 33.8 RDW 12.9 Plt Count 299 Neut % (Auto) 83.4 H Lymph % (Auto) 10.7 L [place] % (Auto) 5.2 Eos % (Auto) 0.3 L Baso % (Auto) 0.4 Neut # (Auto) 9500 H Lymph # (Auto) 1200 [place] # (Auto) 600 Eos # (Auto) 0 Baso # (Auto) 100 Sodium 137 Potassium 4.7 Chloride 106 Carbon Dioxide 20 L BUN 14 Creatinine 0.78 Estimated GFR > 60 BUN/Creatinine Ratio 17.9 Glucose 112 H Lactate 0.8 Calcium 9.3 Total Bilirubin 0.7 AST 37 H ALT 24 Alkaline Phosphatase 48 Total Protein 8.3 H Albumin 4.8 Globulin 3.5 Albumin/Globulin Ratio 1.4 Lipase 111 Assessment & Plan Assessment & Plan narrative: 1. Exacerbation of Crohn's Disease with SBO, present on admission and improving. - terminal ileitis - continue steroids - likely to resolve, if not she will be transferred to primary GI - GI prophylaxis with Protonix - we will advance to clear liquids today as she was feeling better and check a KUB upright. 2. Anxiety / Depression / Panic Attacks, stable. - Cymbalta and Seroquel at home - prn lorazepam iv instead while npo 3. Fibromyalgia, stable. - on gabapentin at home - prn Dilaudid LULY: 04/06-. DVT prophylaxis - SCDs Time-Based Coding :: 35 min spent with patient and on the chart (including review of chart, obtaining history, exam, reviewing outside data, placing orders, documenting exam and treatment plan, and counseling patient) on 04/05. Quality VTE Deep Vein Thrombosis/Pulmonary Embolism Present on Admission: No MIPS - Admit I confirm the patient?s Advance Care Plan is present, Code status is documented, Surrogate decision maker is in patient?s record [If Yes, STOP here]: Yes MIPS - Meds 'Current medications' to include all prescriptions, [id number] products, herbals, cannabis/cannabidiol products, and vitamin/mineral/dietary (nutritional) supplements. I have utilized all available resources to obtain, update, or review the patient?s current medications. [If Yes, STOP here]: Yes
[2024-04-05] MEDS: PANTOPRAZOLE 40 MG VIAL IV (09:20)
--- NOTE | 2024-04-05 11:09 | PC.NURSE ---
Assess- Patient is independent in her room, She denies pain in her abdomen but complains of some discomfort in her throat from trying to have an NG placed. She was given a throat lozenge and these seem to help her. She is independent in her room and her stayed last night. Bt are hypoactive but positive in her r.upper quad and lower quad. She states that she is feeling better and will start on clear liquids now for lunch.
--- NOTE | 2024-04-05 11:49 | DI.RAD.S_ITS ---
PROCEDURE: XR KUB INDICATIONS: Abd pain and SBO FU (better) TECHNIQUE: One view of the abdomen acquired. COMPARISON: None. FINDINGS: Stool gas pattern: Normal-no evidence of ileus or obstruction. No free intraperitoneal or extraperitoneal air. No gross evidence of ascites Soft tissues: No abnormal calcifications. No soft tissue masses. Organs: No gross evidence for organomegaly. IUD seen expected location over the central true pelvis IMPRESSION: Normal abdomen Dictated by: Clarence Juarez M.D. on 04/06/2024 at 7:31 Approved by: Clarence Juarez M.D. on 04/06/2024 at 7:31
[2024-04-05] MEDS: GABAPENTIN 100 MG CAPSULE 300 MG PO (16:48)
[2024-04-05] MEDS: DULOXETINE 20 MG CAPSULE 40 MG PO (17:30)
[2024-04-05] MEDS: QUETIAPINE 25 MG TABLET 50 MG PO (20:04)
[2024-04-06] VITALS: BP 113/66; PULSE 67; RESP 12; TEMP 36.1; O2SAT 96
[2024-04-06 04:00] VITALS: BP 117/61; PULSE 78; RESP 16; TEMP 36.1; O2SAT 96
[2024-04-06 06:32] LABS: Add Manual Diff / Slide Review NO; Basophils Absolute Auto 0 /uL (0-100); Basophils Percent Auto 0.8 % (0-2); Eosinophils Absolute Auto 0 /uL (0-450); Eosinophils Percent Auto 0.3 % (2-4); Hematocrit 35.7 % (36-46); Hemoglobin 12.4 g/dL (12.0-16.0); Lymphocytes Absolute Auto 1800 /uL (1100-4500); Mean Corpuscular HGB Conc 34.7 % (30-36); Mean Corpuscular Hemoglobin 30.5 PG (26-34); Mean Corpuscular Volume 87.9 fL (80-100); Monocytes Absolute Auto 600 /uL (0-900); Monocytes Percent Auto 10.5 % (3-14); Neutrophils Absolute Auto 3200 /uL (1500-7000); Neutrophils Percent Auto 56.4 % (50-75); Platelet Count 209 X10^3/uL (150-400); Red Blood Cell Count 4.07 X10^6/uL (4.0-5.2); Red Cell Distribution Width 12.9 % (11.6-14.8); White Blood Cell Count 5.6 X10^3/uL (4.5-11.0)
[2024-04-06 06:47] LABS: BUN Creatinine Ratio 22.7 (6-22); Blood Urea Nitrogen 17 mg/dL (7-17); Calcium 8.4 mg/dL (8.4-10.2); Carbon Dioxide 24 mmol/L (22-32); Chloride 107 mmol/L (98-107); Estimated Glomerular Filt Rate > 60 mL/min (>60); Glucose 95 mg/dL (70-100); HEMOLYSIS < 15 (0-50); Magnesium 2.2 mg/dL (1.6-2.3); Potassium 3.8 mmol/L (3.4-5.1); Sodium 137 mmol/L (137-145)
--- NOTE | 2024-04-06 07:56 | CM.DANOTE ---
Patient is a 38 yo female who was admitted INPT STATUS on 04/05/24 for Crohns Flare. Pt has [employer] for insurance and her PCP is Rosa Evans. EMR was reviewed. Per MD, pt with hx of Crohns and hx of SBO that resolved without need for surgery and fibromyalgia. Plan is conservative tx with steroids and if pt worsens or does not improve then recommendation of transfer for higher level of care needs. Per RN, pt has been independent in room and supportive spouse has been bedside. Pt's pain seems managed and NGT placement had been unsuccessful due to hx of nasal surgery so now with sore throat. Pt was transitioned to clear liquids for lunch yesterday. Patient lives at home in [place] with her spouse and kids and is independent with ADLs at baseline. Pt works, drives, and does not use DME for ambulation and has not had a flare in a couple years. Pt does not anticipate any needs at d/c if this resolves and spouse can assist as needed. Plan: SW to follow closely for conservative tx for plan of home with family when stable. SW to follow for any further identified discharge planning needs. PRIYANKA Thompson Discharge Planning/Care Management CM Discharge Assessment Start: 04/06/24 07:55 Freq: Status: Active Protocol: Document 04/06/24 07:55 BF (Rec: 04/06/24 07:56 BF [id number]) Discharge Planning Assessment Assigned Irrigation Equipment Mechanic PRIYANKA Vicente DPOA/Assigned Designee Name informally spouse Daron Contact Information [phone] Advance Directives? No Advance Directives on File No History Provided By Patient,Significant Other, Medical Record Has Patient been admitted in last 30 No days? Prior Living Arrangements House Household Members spouse,children Type of transporation used prior to Drives own vehicle admit Independent with ADL's Yes Is patient alert and oriented? Yes Caregiver for Another Yes: child at home Barriers to Discharge No Discharge Plan Home Transportation Arrangement Spouse has been bedside and can transport Referrals Initiated None needed Whiteboard Updated in Patient Room with Yes name and ext. # of Irrigation Equipment Mechanic Review Status In Process Please Provide Date Initial DC 04/06/24 Assessment Was Performed Next Review Type Continued Stay Review
[2024-04-06 08:00] VITALS: BP 115/67; PULSE 72; RESP 16; TEMP 36.3; O2SAT 95
[2024-04-06] MEDS: DULOXETINE 20 MG CAPSULE 40 MG PO (09:12)
[2024-04-06] MEDS: PANTOPRAZOLE 40 MG VIAL IV (09:12)
[2024-04-06] MEDS: GABAPENTIN 100 MG CAPSULE 300 MG PO (09:13)
--- NOTE | 2024-04-06 10:40 | PC.NURSE ---
Patient states that she is not having any discomfort at this time, she only ate 1/4 of her breakfast as she stated that she felt bloated. Encouraged to ambulate in the halls and she did with her .. Tolerated this well. No bowel movement yet today.
[2024-04-06] MEDS: SIMETHICONE 80 MG TABLET PO (11:12)
--- NOTE | 2024-04-06 11:40 | P.PN_ITS ---
Subjective Subjective Interval history: Summary: 8 y/o with PMH of Crohn's disease, previously on Stelara, Imuran, steroids, off from therapies since 1 year ago, who presented with nausea, vomiting and abdominal pain from SBO. She had several episodes of obstructions in the past, matching Crohn's exacerbations, each resolving w/o need for surgery. ED attending, Dr Lara discussed with GI [place] Dr Wallace who recommended steroids and transfer if not improved. Given Solumedrol in ED and admitted to medicine. S: She was a little bloated and has a little bit of nausea today. She ate some breakfast. She did eat a full liquid diet yesterday and had 2 bowel movements. She he is going to try to eat a regular lunch. She will also ambulate this afternoon and see if she improves or worsens. Exam Vital Signs (past 8 hours): - 04/06/24 04:00 04/06/24 08:00 Temperature 97.0 F L 97.4 F L Pulse Rate 78 72 Respiratory Rate 16 16 Blood Pressure 117/61 115/67 Pulse Oximetry 96 95 Oxygen Flow Rate 0 0 Oxygen Delivery Method Room Air Oxygen Flow Rate 0 Narrative Exam Narrative: NAD, alert and oriented. Fluent speech. Lungs are clear, normal rate and effort. Heart is regular, no murmur gallop or rub. Abdomen is soft, non distended. There is mild distention. Extremities are free of edema. Objective Imaging Abdominal x-ray: Radiologist's impression: Normal abdomen Labs 04/06/24 06:00 04/06/24 06:00 Labs: Laboratory Results - last 24 hr 04/06/24 06:00 WBC 5.6 D RBC 4.07 Hgb 12.4 Hct 35.7 L MCV 87.9 MCH 30.5 MCHC 34.7 RDW 12.9 Plt Count 209 Neut % (Auto) 56.4 D Lymph % (Auto) 32.0 D [place] % (Auto) 10.5 Eos % (Auto) 0.3 L Baso % (Auto) 0.8 Neut # (Auto) 3200 Lymph # (Auto) 1800 [place] # (Auto) 600 Eos # (Auto) 0 Baso # (Auto) 0 Sodium 137 Potassium 3.8 Chloride 107 Carbon Dioxide 24 BUN 17 Creatinine 0.75 Estimated GFR > 60 BUN/Creatinine Ratio 22.7 H Glucose 95 Calcium 8.4 Magnesium 2.2 [facility]LY [facility] Medical History Fibromyalgia Anxiety and depression Crohn disease Insomnia Panic attacks Surgical History No significant past surgical history Social History household members: spouse and children Smoking Status: Former smoker alcohol intake: never substance use type: does not use Assessment & Plan Assessment & Plan narrative: 1. Exacerbation of Crohn's Disease with SBO, present on admission and improving. - terminal ileitis on CT - continue steroids - likely to resolve, if not she will be transferred to primary GI. No medical therapy for several years with a lot of issues accessing Gastroenterology Services. 2. Anxiety / Depression / Panic Attacks, stable. - Cymbalta and Seroquel at home - prn lorazepam iv instead while npo 3. Fibromyalgia, stable. - on gabapentin at home - prn Dilaudid PLAN: -continue to advance activity, and ambulate. -continue steroids. -anticipate trying to get her into GI at [facility]. LULY: 04/06-. Time-Based Coding :: [TOTAL MINUTES] spent with patient and on the chart (including review of chart, obtaining history, exam, reviewing outside data, placing orders, documenting exam and treatment plan, and counseling patient) on [DATE]. Quality VTE Deep Vein Thrombosis/Pulmonary Embolism Present on Admission: No
[2024-04-06 12:00] VITALS: BP 118/70; PULSE 72; RESP 19; TEMP 36.4; O2SAT 96
--- NOTE | 2024-04-06 13:59 | P.DS_ITS ---
History of Present Illness History of Present Illness Chief complaint: severe abp pain Narrative: From night doctor: 38 y/o with PMH of Crohn's disease, previously on Stelara, Imuran, steroids, off from therapies since 1 year ago, who presented with nausea, vomiting and abdominal pain from SBO. She had several episodes of obstructions in the past, matching Crohn's exacerbations, each resolving w/o need for surgery. ED attending, Dr Lara discussed with GI [place] Dr Wallace who recommended steroids and transfer if not improved. Given Solumedrol in ED and admitted to medicine with surgery notified. S: She was feeling better today. She was hungry, and has passed a small amount of gas. No nausea. She was had access issues with GI in his now fall at [address] She was not been on medical therapy for several years due to 3 failed colonoscopies. Discharge Providers Provider Date of admission: 04/05/24 00:40 Discharge Date: 04/06/24 Primary care physician: Rosa Evans MD Discharge provider: Darren Alexis MD Summary Hospital Course Discharge Diagnosis: 1. Exacerbation of Crohn's Disease with SBO, present on admission and improving. 2. Anxiety / Depression / Panic Attacks, stable. 3. Fibromyalgia, stable. Hospital Course: She was admitted with concern for bowel obstruction. This in context of possible terminal ileitis. She was treated with steroids and improved and was able to advance her diet. She had a bowel movement the day before on the day of discharge. She also noted difficulty with GI access but is agreeable to referral to Gastroenterology at [facility]. Her PCP is Dr. Evans at [facility] in [place]. Status at Discharge Cognitive/behavioral status at discharge: oriented Functional status at discharge: independent ambulation Overall status at discharge: patient is back to baseline Time Spent with Patient Time spent: Greater than 30 minutes Exam Vital Signs (past 8 hours): - 04/06/24 08:00 04/06/24 12:00 Temperature 97.4 F L 97.6 F Pulse Rate 72 72 Respiratory Rate 16 19 Blood Pressure 115/67 118/70 Pulse Oximetry 95 96 Oxygen Flow Rate 0 0 Oxygen Delivery Method Room Air Oxygen Flow Rate 0 Narrative Exam Narrative: NAD, alert and oriented. Fluent speech. Lungs are clear, normal rate and effort. Heart is regular, no murmur gallop or rub. Abdomen is soft, non distended. Extremities are free of edema. Objective Imaging CT scan - abdomen: Radiologist's impression: Small-bowel obstruction, with a transition point seen within the right lower quadrant of the abdomen, where there is thickened small bowel present. A mild amount of ascites is seen. Labs 04/06/24 06:00 04/06/24 06:00 Labs: Laboratory Results - last 24 hr 04/06/24 06:00 WBC 5.6 D RBC 4.07 Hgb 12.4 Hct 35.7 L MCV 87.9 MCH 30.5 MCHC 34.7 RDW 12.9 Plt Count 209 Neut % (Auto) 56.4 D Lymph % (Auto) 32.0 D King[place]isher % (Auto) 10.5 Eos % (Auto) 0.3 L Baso % (Auto) 0.8 Neut # (Auto) 3200 Lymph # (Auto) 1800 King[place]isher # (Auto) 600 Eos # (Auto) 0 Baso # (Auto) 0 Sodium 137 Potassium 3.8 Chloride 107 Carbon Dioxide 24 BUN 17 Creatinine 0.75 Estimated GFR > 60 BUN/Creatinine Ratio 22.7 H Glucose 95 Calcium 8.4 Magnesium 2.2 PFSH Medical History Fibromyalgia Anxiety and depression Crohn disease Insomnia Panic attacks Surgical History No significant past surgical history Social History household members: spouse and children Smoking Status: Former smoker alcohol intake: never substance use type: does not use Discharge Assessment & Plan Assessment and Plan Assessment: 1. Exacerbation of Crohn's Disease with SBO, present on admission and improving. 2. Anxiety / Depression / Panic Attacks, stable. 3. Fibromyalgia, stable. Plan of Treatment: Discharge home on prednisone 40 mg a day she was given 14 days. She will likely take 60 mg for several days and then go to 40 and then 20 as her symptoms allow. She was asked to make sure she sees her PCP before running out. There was a refill on her prednisone as well. Discharge Plan Discharge Plan Patient Disposition: Home Provider Discharge Comment: Symptoms improved, stable for discharge home. Discharge orders & Medications Prescriptions: New prednisone 20 mg tablet 40 mg PO DAILY Qty: 28 1RF Continued quetiapine [Seroquel] 50 mg tablet 50 mg PO BEDTIME Qty: 60 0RF duloxetine [Cymbalta] 30 MG capsule,delayed release(DR/EC) 40 mg PO QDAY gabapentin 100 mg capsule 300 mg PO 1XD Follow up/Referrals: Rosa Evans MD [Primary Care Provider] - Discharge Health Status Multidrug resistant organism: No MDRO Diet/Activity/Treatments Diet: Full Liquid Activity: As toelrated Skin/Wound/Dressing Care Report to your healthcare provider any signs of infection, such as:: chills, fever and increased pain Visit Report/Discharge Packet Instructions: DI for Small Bowel Obstruction Stand Alone Forms: Patient Portal/API Discharge Data Primary Care Provider: Rosa Evans Quality VTE Deep Vein Thrombosis/Pulmonary Embolism Present on Admission: No
== END 2024-04-06 14:25 | disposition home or self-care (01) | DRG 387 ==
LOC: ED 04-05 00:42 → AC 04-05 00:47
PROVIDERS: Emergency Medicine; Admitting Provider Internal Medicine; Emergency Provider Emergency Medicine; PCP Student in an Organized Health Care Education/Training Program; Referring Provider Emergency Medicine; Visit Provider Internal Medicine
DX: K50.012 Crohn's disease of small intestine with intestinal obstruction (principal); F32.A Depression, unspecified; F41.0 Panic disorder [episodic paroxysmal anxiety]; M79.7 Fibromyalgia; Z87.891 Personal history of nicotine dependence
CPT/HCPCS: 36415; 74018; 74177; 80048; 80053; 81003; 81025; 83605; 83690; 83735; 85025; 96361; 96374; 96375; 96376; 99284; 99291; J1171; J1200; J2405; J2470; J2919; Q9967